=== PATIENT | female | born 1975 | race Caucasian/White ===

== ENCOUNTER 2017-05-25 08:17 | Emergency (ER) | payer MEDICAID ==
--- NOTE | 2017-05-25 09:01 | ED Physician Documentation ---
PD HPI URI - Stated complaint Stated Complaint: CHEST TIGHTNESS/SIDE PX - Chief complaint Chief Complaint: Cardiac - History obtained from History obtained from: Patient - History of Present Illness Timing - onset: How many days ago (4) Timing duration: Days Timing details: Gradual onset, Still present, Waxing and waning Associated symptoms: Ear pain, Nasal congestion, Dry cough, Chest pain, Dyspnea. No: Fever, Chills, Sweats Contributing factors: COPD / asthma Improves by: Rest Worsened by: Activity Similar symptoms before: Diagnosis (COPD) Recently seen: Not recently seen - Additional information Additional information: 41-year-old female with a history of COPD has developed increased respiratory difficulty she does not have any bronchodilator or any medications of any kind for her COPD. She is recently moved to the area and was last treated in January with a course of prednisone and antibiotic and inhaler with good result. She states she was well until several days ago when she began to have cough and increased shortness of breath. Review of Systems Constitutional: denies: Fever Eyes: denies: Decreased vision Ears: reports: Ear pain Nose: reports: Congestion Throat: denies: Sore throat Cardiac: reports: Chest pain / pressure. 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 - Present Medications Home Medications: Ambulatory Orders Medication Instructions Recorded Confirmed Albuterol Sulf [Ventolin Hfa 1 - 2 puffs INH Q4HR PRN #1 inhaler 05/25/17 Inhaler] Azithromycin [Zithromax] 250 mg PO DAILY #6 tablet 05/25/17 predniSONE [Deltasone] 10 mg PO DAILY #26 tablet 05/25/17 - Allergies Allergies/Adverse Reactions: Allergies Allergy/AdvReac Type Severity Reaction Status Date / Time Penicillins Allergy Unknown Verified 05/25/17 08:31 - Social History Does the pt smoke?: No Smoking Status: Former smoker Does the pt drink ETOH?: Yes Does the pt have substance abuse?: No PD ED PE NORMAL - Vitals Vital signs reviewed: Yes (Hypertensive) - General General: Alert and oriented X 3, No acute distress, Well developed/nourished - HEENT HEENT: Atraumatic, PERRL, EOMI, Other (Mild erythema along the right umbo the left is clear. mucous membranes are dry. ) - Neck Neck: Supple, no meningeal sign, No bony TTP - Cardiac Cardiac: RRR, No murmur - Respiratory Respiratory: No respiratory distress, Other (markedly diminished breath sounds bilaterally) - Abdomen Abdomen: Soft, Non tender - Back Back: No CVA TTP, No spinal TTP - Derm Derm: Normal color, Warm and dry, No rash - Extremities Extremities: No deformity, No edema - Neuro Neuro: No motor deficit, No sensory deficit Eye Opening: Spontaneous Motor: Obeys Commands Verbal: Oriented GCS Score: 15 - Psych Psych: Normal mood, Normal affect Results - Vitals Vitals: Vital Signs - 24 hr 05/25/17 05/25/17 05/25/17 08:23 09:46 09:56 Temperature 36.1 C L Heart Rate 77 81 76 Respiratory 18 21 18 Rate Blood Pressure 134/93 H 132/86 H O2 Saturation 98 97 Oxygen O2 Source Room air - EKG (time done) 0825 Rate: Rate (enter#) (76) Rhythm: NSR Compare to prior EKG: Old EKG unavailable Computer interpretation: Agree with computer - Rads (name of study) 2 veiw chest Radiology: Prelim report reviewed (Impression: Minimal bibasilar opacity, atelectasis/scar versus infiltrate.), EMP read indepedently, See rad report PD MEDICAL DECISION MAKING - ED course Complexity details: reviewed results, re-evaluated patient, considered differential, d/w patient ED course: 41-year-old female with history of COPD has had developed cough and congestion she has an increased shortness of breath and she does have otitis on exam she has diminished breath sounds and a question of infiltrate in the bases on chest x-ray. She is administered dexamethasone here in the emergency department as well as a DuoNeb treatment and 1 g of Rocephin IM. Departure - Departure Disposition: 01 Home, Self Care Clinical Impression: COPD exacerbation Condition: Stable Instructions: ED COPD Flare Follow-Up: [facility] [Provider Group] Prescriptions: Albuterol Sulf [Ventolin Hfa Inhaler] 1 - 2 puffs INH Q4HR PRN #1 inhaler PRN Reason: Shortness Of Air/Wheezing Azithromycin [Zithromax] 250 mg PO DAILY #6 tablet predniSONE [Deltasone] 10 mg PO DAILY #26 tablet
[2017-05-25] MEDS ORDERED: IPRATROPIUM/ALBUTEROL 3 ML NEB INH STA (09:23)
[2017-05-25] MEDS ORDERED: DEXAMETHASONE 10 MG/ML VIAL PO STA (09:23)
[2017-05-25] MEDS ORDERED: CHERRY SYRUP 10 ML UDC PO ONE (09:41)
[2017-05-25 09:58] VITALS: BP 132/86
--- NOTE | 2017-05-25 09:58 | XRAY Preliminary Report ---
Exam: XR CHEST 2 VIEW X-RAY IMPRESSION: Minimal bibasal opacity, atelectasis/scar versus infiltrate. [facility] SITE ID: [id number]
--- NOTE | 2017-05-25 09:58 | XRAY Report ---
EXAM: CHEST RADIOGRAPHY EXAM DATE: 05/25/2017 09:48 AM. CLINICAL HISTORY: Diminished breath sounds chest pain. COMPARISON: None. TECHNIQUE: 2 views. FINDINGS: Lungs/Pleura: Minimal bibasal opacity, atelectasis/scar versus infiltrate. No significant pleural eff usion or evidence of pneumothorax. Mediastinum: Heart and mediastinal contours are unremarkable. Other: None. IMPRESSION: Minimal bibasal opacity, atelectasis/scar versus infiltrate. [facility] Referring Provider Line: [phone] SITE ID: [id number]
[2017-05-25] MEDS ORDERED: LIDOCAINE 1% 2 ML VIAL SUBQ ONE (10:06)
[2017-05-25] MEDS ORDERED: cefTRIAXone 1 GM VIAL IM STA (10:06)
== END 2017-05-25 10:53 | disposition home or self-care (01) ==
LOC: ED 08:17
DX: J44.1 Chronic obstructive pulmonary disease with (acute) exacerbation (principal); Z87.891 Personal history of nicotine dependence
CPT/HCPCS: 71046; 93005; 94640; 96372; 99283; 99284; A9270

== ENCOUNTER 2017-10-08 08:11 | Emergency (ER) | payer OTHER ==
[2017-10-08 08:18] VITALS: BP 148/98
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
== END 2017-10-08 10:00 | disposition home or self-care (01) ==
LOC: ED 08:11
DX: J44.1 Chronic obstructive pulmonary disease with (acute) exacerbation (principal); H66.001 Acute suppurative otitis media without spontaneous rupture of ear drum, right ear; X01.1XXA Exposure to smoke in uncontrolled fire, not in building or structure, initial encounter
CPT/HCPCS: 99283

== ENCOUNTER 2018-09-01 13:00 | Outpatient (CLI) | payer MEDICAID ==
[~2018-09-01 13:00] MED LIST: ALBUTEROL NEB 2.5 MG/3 ML INH SCH
== END 2018-09-01 13:01 | disposition home or self-care (01) ==
LOC: RT 13:00
PROVIDERS: ATTEND Registered Nurse
DX: J44.0 Chronic obstructive pulmonary disease with (acute) lower respiratory infection (principal); J20.9 Acute bronchitis, unspecified; F17.200 Nicotine dependence, unspecified, uncomplicated
CPT/HCPCS: 94060; 94729

== ENCOUNTER 2018-09-13 08:00 | Outpatient (CLI) | payer MEDICAID ==
[2018-09-13 12:13] LABS: HGB - HEMOGLOBIN 14.9 g/dL (12.0-16.0); MEAN CORPUSCULAR HEMOGLOBIN 31.7 pg (27.0-31.0); MEAN CORPUSCULAR HGB CONC 33.8 g/dL (32.0-36.0); MEAN CORPUSCULAR VOLUME 93.8 fL (81.0-99.0); RED BLOOD COUNT 4.7 10^6/uL (4.20-5.40); RED CELL DISTRIBUTION WIDTH 12.6 % (12.0-15.0); WHITE BLOOD COUNT 9.3 x10^3/uL (4.8-10.8)
[2018-09-13 12:21] LABS: ALBUMIN 3.9 g/dL (3.2-5.5); ALBUMIN/GLOBULIN RATIO 1.3 (1.0-2.2); ALKALINE PHOSPHATASE 52 IU/L (42-121); ALT ALANINE AMINOTRANSFERASE 14 IU/L (10-60); AST ASPARTATE AMINOTRANSFERASE 16 IU/L (10-42); BILIRUBIN,TOTAL 0.9 mg/dL (0.2-1.0); BUN - BLOOD UREA NITROGEN 11 mg/dL (6-20); CALCIUM 8.9 mg/dL (8.5-10.3); CARBON DIOXIDE - CO2 26 mmol/L (21-32); CHLORIDE 103 mmol/L (101-111); CHOL/HDL RATIO 5.6 (<4.4); CHOLESTEROL 213 mg/dL; CREATININE 0.6 mg/dL (0.4-1.0); GFR - MDRD 109 (>89); GLUCOSE 99 mg/dL (70-100); HDL CHOLESTEROL 38 mg/dL; LDL CHOLESTEROL,CALCULATED 158 mg/dL; LDL/HDL RATIO 4.2 (<4.4); SODIUM 143 mmol/L (135-145); VLDL CHOLESTEROL 17 mg/dL
== END 2018-09-13 08:01 | disposition home or self-care (01) ==
LOC: LAB.N 08:00
PROVIDERS: ATTEND Internal Medicine
DX: Z00.00 Encounter for general adult medical examination without abnormal findings (principal); Z90.89 Acquired absence of other organs; J44.9 Chronic obstructive pulmonary disease, unspecified
CPT/HCPCS: 36415; 80053; 80061; 83721; 84443; 85027

== ENCOUNTER 2018-11-08 11:10 | Outpatient (CLI) | payer MEDICAID ==
[2018-11-08 13:01] VITALS: BP 120/80
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
== END 2018-11-08 11:11 | disposition home or self-care (01) ==
LOC: SC 11:10
PROVIDERS: ATTEND Internal Medicine Pulmonary Disease
DX: G47.33 Obstructive sleep apnea (adult) (pediatric) (principal); G47.00 Insomnia, unspecified
CPT/HCPCS: 99203; 99212

== ENCOUNTER 2018-11-22 19:30 | Outpatient (CLI) | payer MEDICAID | END 2018-11-22 23:59 | LOC: SC 19:30 | PROVIDERS: ATTEND Internal Medicine Pulmonary Disease | DX: G47.33 Obstructive sleep apnea (adult) (pediatric) (principal) | CPT/HCPCS: 95806 ==

== ENCOUNTER 2019-01-04 10:22 | Outpatient (CLI) | payer MEDICAID ==
--- NOTE | 2019-01-04 12:52 | SLEEP CARE CONSULTATION ---
Information from patient questionnaire entered by Vy Berman. I have reviewed and concur with the information entered by Vy Berman. This document represents the service I personally performed and the decisions made by me, Sav Kim MD, [facility]. History of Present Illness Initial [place] Sleepiness Scale score: 14 Current [place] Sleepiness Scale score: 15 Additional HPI information: HPI: returned for follow up of the sleep study she had on 11/22/2018. The test shows the following: SLEEP TIME AND EFFICIENCY: The sleep study recording began at 09:16:03 PM and ended at 03:32:48 AM. Total recording time was 376.7 minutes. The total sleep time was 331.0 minutes. The sleep efficiency was 87.9 percent. The patient spent 232.0 minutes supine, and spent 99.0 minutes non-supine. The patients own estimate of sleep time was 7.00 hours. RESPIRATORY DATA: The AHI in this report is indexed to sleep time based on actigraphy. The AASM defines this as MILAN. The AHI on this type 3 Home Sleep Study may understate the AHI determined on a type 1 or 2 study, since EEG is not monitored resulting in the inability to score non-desaturating hypopneas. Based on 4% Calculation: The AHI4% calculation of 0.4 per hour of recording time was based on a total of 1 scored apneas and 1 scored hypopneas with 4% desaturations. Supine AHI4%: 0.5 per hour. Non-supine AHI4%: 0.0 per hour. Oxygen Summary: Patient's baseline O2 saturation was 96.4 %. The patient spent 15.1 minutes at an oxygen saturation less than 90%, and 0.0 minutes less than 85%. The desaturation index was 0.4 events per hour sleep time. The lowest saturation was 88.1%. The patient was informed of these findings. I explained to her that she does not have significant sleep disordered breathing as previously diagnosed. Allergies and Home Medications Drug allergies reviewed: Yes Home medication list reviewed: Yes Review of Systems Review of systems same as previous: Yes Physical Exam Weight: 213 lb Impression and Plan IMPRESSION: 1. Obstructive Sleep Apnea-Hypopnea Syndrome, very mild as diagnosed in [place] many years ago but not seen here. The patient never used CPAP at home and does not wish to use one. Therefore, further evaluation is not needed. I did advise her stop smoking cigarettes because her oxygen saturation was already slightly low for 15 minutes during the test. PLAN: 1. Quit smoking cigarettes 2. Avoid weight gain. 3. Return for follow up on as needed basis. I spent 100% of this 20 minute visit face to face with the patient with greater than 50% of this was spent time counseling the patient and coordination of care.
== END 2019-01-04 10:23 | disposition home or self-care (01) ==
LOC: SC 10:22
PROVIDERS: ATTEND Internal Medicine Pulmonary Disease
DX: G47.33 Obstructive sleep apnea (adult) (pediatric) (principal); F17.210 Nicotine dependence, cigarettes, uncomplicated
CPT/HCPCS: 99212; 99213

== ENCOUNTER 2019-03-22 19:07 | Outpatient (CLI) | payer MEDICAID ==
--- NOTE | 2019-03-23 06:55 | Ultrasound Report ---
Reason: MENORRHAGIA Procedure Date: 03/22/2019 Accession Number: [id number] / [id number] Procedure: US - Pelvic w/Transvaginal CPT Code: Final Report FULL RESULT: EXAM: PELVIC ULTRASOUND EXAM DATE: 03/22/2019 07:57 PM. CLINICAL HISTORY: Menorrhagia. COMPARISON: None. TECHNIQUE: Realtime transabdominal pelvic scan performed to identify the uterus and adnexa and as an overview of other pelvic structures, followed by transvaginal scan to provide greater detail of the uterus and adnexa, with static image documentation. FINDINGS: Uterus: 6.9 x 4.5 x 5.4 cm, volume 87 cc. Retroverted position. Normal overall size and echotexture. Masses: None. Endometrium: 6 mm. An echogenic non-hypervascular focus in the endometrial canal may represent a polyp and measures approximately 2 x 8 mm as seen on image 45. It is surrounded by a small amount of fluid. Cervix: Unremarkable. Right Ovary: 2.1 x 1.8 x 2.9 cm, volume 5.5 cc. Normal echotexture and blood flow. Left Ovary: 5.4 x 3.3 x 4.4 cm, volume 41 cc. A large simple cyst measures 3.1 x 3.6 x 4.3 cm. Additionally, there is a small complex cyst containing echogenic nonvascular components measuring 1.3 x 1.1 x 0.9 cm. No evidence for torsion. Free Fluid: Small physiologic amount. Other: None. IMPRESSION: 1. 4.3 cm simple left ovarian cyst. 2. 1.3 cm small left ovarian hemorrhagic cyst. 3. 8 mm probable endometrial polyp. [facility]
== END 2019-03-22 19:08 | disposition home or self-care (01) ==
LOC: DI 19:07
PROVIDERS: ATTEND Obstetrics & Gynecology
DX: N83.292 Other ovarian cyst, left side (principal)
CPT/HCPCS: 76830; 76856

== ENCOUNTER 2019-04-06 15:55 | Outpatient (CLI) | payer MEDICAID ==
--- NOTE | 2019-04-06 16:38 | CT Report ---
Reason: CHRONIC SINUSITIS Procedure Date: 04/06/2019 Accession Number: [id number] / [id number] Procedure: CT - Sinuses CPT Code: Final Report FULL RESULT: EXAM: CT SINUS EXAM DATE: 04/06/2019 04:19 PM. HISTORY: 43-year-old female. CHRONIC SINUSITIS. COMPARISONS: None. TECHNIQUE: Routine multi-axial CT imaging performed through the sinuses. Iodinated IV contrast: None. Reconstructions: Multiplanar reformats. In accordance with CT protocol optimization, one or more of the following dose reduction techniques were utilized for this exam: automated exposure control, adjustment of mA and/or KV based on patient size, or use of iterative reconstructive technique. FINDINGS: RIGHT Frontal: Normal. Ethmoid: Normal. Maxillary: Normal. Sphenoid: Normal. Drainage Pathways: The frontal recess, ostiomeatal complex and sphenoethmoidal recess are patent and normal. LEFT Frontal: Normal. Ethmoid: Normal. Maxillary: Minimal mucosal thickening inferior left maxillary antrum. Sphenoid: Normal. Drainage Pathways: The frontal recess, ostiomeatal complex and sphenoethmoidal recess are patent and normal. Nasal Cavity: Rightward deviation of the nasal septum. Alley bullosa of the left middle turbinate. No mass or significant anatomic abnormality evident. Osseous Structures: Unremarkable. Orbits: Unremarkable. Other: None. IMPRESSION: 1. Minimal mucosal thickening inferior left maxillary antrum. The remaining paranasal sinuses are clear. No evidence of sinusitis. The drainage pathways bilaterally are patent. 2. Rightward deviation of the nasal septum. Alley bullosa of the left middle turbinate. [facility]
== END 2019-04-06 15:56 | disposition home or self-care (01) ==
LOC: DI 15:55
PROVIDERS: ATTEND Otolaryngology
DX: J32.9 Chronic sinusitis, unspecified (principal); J34.2 Deviated nasal septum
CPT/HCPCS: 70486

== ENCOUNTER 2019-04-17 10:10 | Outpatient (CLI) | payer MEDICAID | END 2019-04-17 10:11 | disposition home or self-care (01) | LOC: LAB 10:10 | PROVIDERS: ATTEND Obstetrics & Gynecology | DX: Z01.812 Encounter for preprocedural laboratory examination (principal); N84.0 Polyp of corpus uteri ==

== ENCOUNTER 2019-04-18 07:36 | Outpatient (CLI) | payer MEDICAID | END 2019-04-18 07:37 | disposition critical access hospital (66) | LOC: EMS 07:36 | PROVIDERS: ATTEND Surgery | DX: R06.02 Shortness of breath (principal); R05 Cough | CPT/HCPCS: A0425; A0427; A0999 ==

== ENCOUNTER 2019-04-18 07:55 | Inpatient (IN) | payer MEDICAID ==
[2019-04-18] MEDS ORDERED: SODIUM CHLORIDE 0.9% 1,000 ML IV ONE ×2 (08:00→10:28)
[2019-04-18] MEDS ORDERED: IPRATROPIUM/ALBUTEROL 3 ML NEB INH STA ×3 (08:00→10:28)
--- NOTE | 2019-04-18 08:03 | ED Physician Documentation ---
PD HPI DYSPNEA - Stated complaint Stated Complaint: SOA - History obtained from History obtained from: Patient, Family - History of Present Illness Timing - onset: How many days ago (3) Timing - onset during: Rest Timing - duration: Days (3) Timing - details: Gradual onset, Still present Inciting event(s): URI Improved by: Inhaler/neb, Steroids Worsened by: Exertion, Laying flat, Coughing Associated symptoms: Fever, Cough, Wheezing Similar symptoms before: Diagnosis (COPD) Recently seen: Not recently seen - Additional information Additional information: 43-year-old female with a history of COPD has developed cough congestion low- grade fever and shortness of breath. She has not been able to get her nebulizer machine to help her with her shortness of breath and she eventually called the ambulance. She has received an albuterol and a DuoNeb in route to the hospital. She has some some improvement in her breathing. She continues to have tight wheezes. She was given 125 mg of Solu-Medrol and route. She indicates last time she had to take prednisone was about 1 month ago. Review of Systems Constitutional: reports: Fever, Fatigue Eyes: denies: Decreased vision Ears: denies: Ear pain Nose: reports: Rhinorrhea / runny nose, Congestion Throat: reports: Sore throat Cardiac: reports: Chest pain / pressure. denies: Palpitations, Pedal edema, Calf pain Respiratory: reports: Dyspnea, Cough, Wheezing GI: reports: Abdominal Pain. 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 - Present Medications Home Medications: Ambulatory Orders Medication Instructions Recorded Confirmed Albuterol Sulf [Ventolin Hfa 1 - 2 puffs INH Q4HR PRN #1 inhaler 05/25/17 Inhaler] Azithromycin [Zithromax] 250 mg PO DAILY #6 tablet 10/08/17 buPROPion [Wellbutrin Xl] 150 mg PO DAILY 10/08/17 10/08/17 predniSONE [Deltasone] 10 mg PO DAILY #26 tablet 10/08/17 - Allergies Allergies/Adverse Reactions: Allergies Allergy/AdvReac Type Severity Reaction Status Date / Time Penicillins Allergy Unknown Verified 04/18/19 08:08 - Social History Does the pt smoke?: No Smoking Status: Never smoker Does the pt drink ETOH?: Yes Does the pt have substance abuse?: No - Immunizations Immunizations are current?: Yes - POLST Patient has POLST: No PD ED PE NORMAL - Vitals Vital signs reviewed: Yes (tachy, tachypneic and hypertensive ) - General General: Alert and oriented X 3, Well developed/nourished, Other (arrives with albuterol neb running and acute dyspnea with audible wheeze) - HEENT HEENT: Atraumatic, PERRL, EOMI, Ears normal, Other (dry mucous membranes ) - Neck Neck: Supple, no meningeal sign, No bony TTP - Cardiac Cardiac: No murmur, Other (tachy to 120) - Respiratory Respiratory: Other (tachypneic at rest with tight wheezes bilat) - Abdomen Abdomen: Soft, Other (mild tenderness without guarding ) - Back Back: No CVA TTP, No spinal TTP - Derm Derm: Normal color, Warm and dry, No rash - Extremities Extremities: No deformity, No edema, No calf tenderness / cord - Neuro Neuro: Alert and oriented X 3, 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, No motor deficit, No sensory deficit, Normal speech Eye Opening: Spontaneous Motor: Obeys Commands Verbal: Oriented GCS Score: 15 - Psych Psych: Other (mood is anxious and the affect is cautious) Results - Vitals Vitals: Vital Signs - 24 hr 04/18/19 04/18/19 04/18/19 08:02 08:18 08:30 Temperature 37.5 C Heart Rate 123 H 110 H 113 H Respiratory 29 H 28 H 35 H Rate Blood Pressure 158/107 H 158/94 H O2 Saturation 95 93 04/18/19 04/18/19 08:48 09:30 Temperature Heart Rate 114 H 118 H Respiratory 34 H 30 H Rate Blood Pressure 177/94 H O2 Saturation 92 Oxygen O2 Source Room air - Labs Labs: Laboratory Tests 04/18/19 04/18/19 04/18/19 08:12 08:12 08:12 WBC 9.8 RBC 4.07 L Hgb 13.1 Hct 39.8 MCV 97.8 MCH 32.2 H MCHC 32.9 RDW 13.6 Plt Count 168 MPV 9.8 Neut # (Auto) 8.0 H Lymph # (Auto) 0.8 L [place] # (Auto) 0.8 Eos # (Auto) 0.3 Baso # (Auto) 0.0 Absolute Nucleated RBC 0.00 Nucleated RBC % 0.0 Sodium 139 Potassium 3.3 L Chloride 103 Carbon Dioxide 25 Anion Gap 11.0 BUN 10 Creatinine 0.6 Estimated GFR (MDRD) 108 Glucose 135 H Lactic Acid 2.3 H Calcium 8.1 L Total Bilirubin 0.7 AST 28 ALT 50 Alkaline Phosphatase 52 Total Protein 7.1 Albumin 4.1 Globulin 3.0 Albumin/Globulin Ratio 1.4 Lipase 22 Urine Color Urine Clarity Urine pH Ur Specific Bledsoe Urine Protein Urine Glucose (UA) Urine Ketones Urine Occult Blood Urine Nitrite Urine Bilirubin Urine Urobilinogen Ur Leukocyte Esterase Ur Microscopic Review Urine Culture Comments Urine HCG, Qual 04/18/19 04/18/19 08:39 08:39 WBC RBC Hgb Hct MCV MCH MCHC RDW Plt Count MPV Neut # (Auto) Lymph # (Auto) [place] # (Auto) Eos # (Auto) Baso # (Auto) Absolute Nucleated RBC Nucleated RBC % Sodium Potassium Chloride Carbon Dioxide Anion Gap BUN Creatinine Estimated GFR (MDRD) Glucose Lactic Acid Calcium Total Bilirubin AST ALT Alkaline Phosphatase Total Protein Albumin Globulin Albumin/Globulin Ratio Lipase Urine Color YELLOW Urine Clarity CLEAR Urine pH 6.0 Ur Specific [place] 1.025 1.025 Urine Protein NEGATIVE Urine Glucose (UA) NEGATIVE Urine Ketones NEGATIVE Urine Occult Blood TRACE-INTA Urine Nitrite NEGATIVE Urine Bilirubin NEGATIVE Urine Urobilinogen 0.2 (NORMAL) Ur Leukocyte Esterase NEGATIVE Ur Microscopic Review NOT INDICATED Urine Culture Comments NOT INDICATED Urine HCG, Qual NEGATIVE - Rads (name of study) cxr Radiology: Prelim report reviewed (Impression: Patchy bibasilar opacities, greater on the left. Could reflect atelectasis, infiltrate, or scarring in the correct clinical setting.), EMP read indepedently, See rad report PD MEDICAL DECISION MAKING - ED course Complexity details: reviewed old records, reviewed results, re-evaluated patient, considered differential, d/w patient, d/w family ED course: 43-year-old female with a history of COPD has an exacerbation of her COPD and she is not able to get relief with multiple nebulized treatments. She is administered Solu-Medrol 125 mg in route to the hospital here this morning she is received a DuoNeb and albuterol and the barney a second DuoNeb here 10 mg of albuterol and a third DuoNeb. She continues to have tachycardia, tachypnea and wheezing as well as anxiety. She was afebrile today white count is normal chest x-ray is concerning for the possibility of pneumonia. She is administered Rocephin intravenously as well.She has not cleared here in the emergency department and admission to the hospital for exacerbation of COPD and pneumonia is sought. Departure - Departure Disposition: [facility] DC/Xfer Clinical Impression: COPD exacerbation Pneumonia Qualifiers: Pneumonia type: due to unspecified organism Laterality: left Lung location: lower lobe of lung Qualified Code(s): J18.9 - Pneumonia, unspecified organism Condition: Fair
--- NOTE | 2019-04-18 08:31 | XRAY Report ---
Reason: chest pain Procedure Date: 04/18/2019 Accession Number: [id number] / [id number] Procedure: XR - Chest 1 View X-Ray CPT Code: 73071 Final Report FULL RESULT: EXAM: CHEST RADIOGRAPHY EXAM DATE: 04/18/2019 08:17 AM. CLINICAL HISTORY: Chest pain. COMPARISON: CHEST 2 VIEW 05/25/2017 9:31 AM. TECHNIQUE: 1 view. FINDINGS: Lungs/Pleura: Prominent interstitial markings. Patchy bibasilar opacities, greater on the left, could reflect atelectasis, infiltrate, or scarring in the correct clinical setting. Only minimally present on the right. No pleural effusion. No visible pneumothorax. Mediastinum: Within exam limitations, the cardiomediastinal contour is normal. Other: None. IMPRESSION: Patchy bibasilar opacities, greater on the left. Could reflect atelectasis, infiltrate, or scarring in the correct clinical setting. RADIA
[2019-04-18 08:35] LABS: ALBUMIN 4.1 g/dL (3.2-5.5); ALBUMIN/GLOBULIN RATIO 1.4 (1.0-2.2); BILIRUBIN,TOTAL 0.7 mg/dL (0.2-1.0); CALCIUM 8.1 mg/dL (8.5-10.3); CREATININE 0.6 mg/dL (0.4-1.0); TOTAL PROTEIN 7.1 g/dL (6.7-8.2)
[2019-04-18] MEDS ORDERED: cefTRIAXone 1 GM in SODIUM CHLORIDE 0.9% MINIBAG 100 ML IV STA (08:37)
[2019-04-18] MEDS ORDERED: LORazepam 2 MG/ML VIAL IVP STA ×2 (08:37→10:44)
[2019-04-18] MEDS ORDERED: ALBUTEROL NEB 2.5 MG/3 ML INH STA (08:39)
[2019-04-18 08:41] LABS: BASOPHILS % (AUTO) 0.4 %; EOSINOPHILS # (AUTO) 0.3 10^3/uL (0.0-0.7); EOSINOPHILS % (AUTO) 2.7 %; HGB - HEMOGLOBIN 13.1 g/dL (12.0-16.0); LYMPHOCYTES # (AUTO) 0.8 10^3/uL (1.5-3.5); LYMPHOCYTES % (AUTO) 7.9 %; MEAN CORPUSCULAR HEMOGLOBIN 32.2 pg (27.0-31.0); MEAN CORPUSCULAR HGB CONC 32.9 g/dL (32.0-36.0); MEAN CORPUSCULAR VOLUME 97.8 fL (81.0-99.0); MEAN PLATELET VOLUME 9.8 fL (7.9-10.8); MONOCYTES # (AUTO) 0.8 10^3/uL (0.0-1.0); MONOCYTES % (AUTO) 7.6 %; PLT - PLATELET COUNT 168 10^3/uL (130-450); RED BLOOD COUNT 4.07 10^6/uL (4.20-5.40); RED CELL DISTRIBUTION WIDTH 13.6 % (12.0-15.0); WHITE BLOOD COUNT 9.8 x10^3/uL (4.8-10.8)
[2019-04-18] MEDS ORDERED: POTASSIUM CHLORIDE 20 MEQ TABLET PO STA (08:52)
[2019-04-18 09:08] LABS: BILIRUBIN,URINE NEGATIVE (NEGATIVE); GLUCOSE, URINE (UA) NEGATIVE (NEGATIVE); KETONES,URINE (UA) NEGATIVE (NEGATIVE); LEUKOCYTE ESTERASE, URINE NEGATIVE (NEGATIVE); NITRITE,URINE NEGATIVE (NEGATIVE); OCCULT BLOOD,URINE TRACE-INTA (NEGATIVE); PROTEIN,URINE NEGATIVE (NEGATIVE); UROBILINOGEN,URINE 0.2 (NORMAL) E.U./dL (NORMAL)
[2019-04-18 09:12] LABS: CLARITY,URINE CLEAR (CLEAR); HCG UR QUAL NEGATIVE
[2019-04-18] MEDS ORDERED: AZITHROMYCIN INJ 500 MG in SODIUM CHLORIDE 0.9% 250 ML IV STA (10:33)
[2019-04-18 10:48] LABS: MUDS CUTOFF CONCENTRATIONS CUTOFF CONC BELOW:
[2019-04-18 11:06] LABS: AMPHETAMINE SCREEN,URINE NEGATIVE (NEGATIVE); BENZODIAZEPINES SCREEN, URINE NEGATIVE (NEGATIVE); COCAINE SCREEN URINE NEGATIVE (NEGATIVE); METHADONE SCREEN, URINE NEGATIVE (NEGATIVE); METHAMPHETAMINES SCREEN, URINE NEGATIVE (NEGATIVE); OPIATE SCREEN, URINE POSITIVE (NEGATIVE); OXYCODONE SCREEN, URINE NEGATIVE (NEGATIVE); PROPOXYPHENE SCREEN, URINE NEGATIVE (NEGATIVE); TRICYCLIC ANTIDEPRESSANT,URINE POSITIVE (NEGATIVE)
[2019-04-18] MEDS ORDERED: LEVALBUTEROL 1.25 MG/3 ML NEB INH STA (11:42)
[2019-04-18] MEDS: LEVALBUTEROL 1.25 MG/3 ML NEB INH PRN ×2 (12:03→16:32)
[2019-04-18] MEDS: methylPREDNISolone SUCCINATE 125 MG/2 ML VIAL IVP SCH ×3 (12:30→21:40)
[2019-04-18] MEDS: MORPHINE 2 MG/ML CARPUJECT IVP PRN ×4 (12:30→21:10)
[2019-04-18] MEDS: guaiFENesin 600 MG TABLET PO SCH ×2 (12:30→21:38)
--- NOTE | 2019-04-18 13:02 | HISTORY & PHYSICAL EXAMINATION ---
Chief Complaint - Chief Complaint Chief Complaint: fever, cough, SOB History of Present Illness - Admitted From Admitted From:: ED - History Obtained From Records Reviewed: yes History obtained from: chart review, patient, patient's sister Exam Limitations: none - History of Present Illness HPI Comment/Other: Carmel Schwarz is a 43-year old white female with a past medical history of COPD, pneumonia, tobacco dependence, narcotic dependence, chronic pain, spinal stenosis, osteoarthritis, chronic insomnia, obesity, bladder prolapse, kidney stones, ovarian cyst, PTSD, Bipolar affective disorder, Borderline personality disorder, suicide attempts, self-harm by cutting arms, GERD, status post thyroidectomy, hiatal hernia, and caffeine dependence. The patient was brought in by EMS with a 3-day history of progressive shortness of breath, cough, sore throat, runny nose and orthopnea, which started as an upper respiratory infection. She states that last night she had nausea, vomiting, and a low grade fever with chills. For her shortness of breath, she tried her albuterol nebulizer with no relief, and admits to smoking 10-12 cigarettes daily despite her COPD. EMS reports they administered 125 mg IV solu-medrol, and continuous due-neb en route with some relief. Labs showed potassium 3.3, glucose 135, lactic acid 2.3 and calcium 8.1, without any other abnormalities. A urine was negative for infection, MUDDs screen normal for what she takes at home, influenza A&B negative, and HCg negative. Imaging shows left greater than right patchy opacities. Vital signs upon arrival were: temp 37.5 C, HR 123, B/P 158/107, RR 29, and the patient was 95% on room air. Upon my exam, the patient had doorway wheezing, no strider, and could only speak in 2-3 word sentences. She complained of abdominal pain from her vigorous coughing, increased flank pain, headaches, chest tightness, and was very worried about messing up her pain clinic agreement regarding her narcotics. Given her pneumonia, with COPD exacerbation, she has been admitted to inpatient. 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: Ovarian cysts : reports: Incontinence, Nocturia, Frequency, Kidney stones HEENT: reports: Chronic vision loss, Chronic sinusitis, Chronic hearing loss Psych: reports: Depression, Anxiety, Bipolar disorder, Schizophrenia, Panic emery cks, Post traumatic stress disorder, Other (suicidal in the past, cutting on arms) Musculoskeletal: reports: Osteoarthritis, Fatigue, Chronic back pain Derm: reports: None MRSA Hx?: No - Past Surgical History General: reports: 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 She is not employed, lives a sedentary lifestyle. She has chronic pain which limits her abilities, but still drives. She denies alcohol or illicit drug use. She admits to smoking from age 12-currently (10-12 cigarettes daily). She wishes to be a DNR. - Substance History Use: Uses substance without health or social issues: Tobacco, Opioid Use Issues: Anxiety Disorder, Mood Disorder, Sleep Disorder Abuse: Recurrent use of substance despite neg consequences: Opioid Abuse Issues: Anxiety Disorder, Mood Disorder, Sleep Disorder Dependence: Experiences withdrawal or developed tolerances: Tobacco, Opioid Dependence Issues: Anxiety Disorder, Mood Disorder Tobacco Details: Cigarettes - POLST Patient has POLST: No POLST Status: DNR Meds/Allgy - Home Medications Home Medications: Ambulatory Orders Medication Instructions Recorded Confirmed Albuterol Sulf [Ventolin Hfa 1 - 2 puffs INH Q4HR PRN #1 inhaler 05/25/17 Inhaler] Azithromycin [Zithromax] 250 mg PO DAILY #6 tablet 10/08/17 buPROPion [Wellbutrin Xl] 150 mg PO DAILY 10/08/17 10/08/17 predniSONE [Deltasone] 10 mg PO DAILY #26 tablet 10/08/17 - Allergies Allergies/Adverse Reactions: Allergies Allergy/AdvReac Type Severity Reaction Status Date / Time Penicillins Allergy Unknown Verified 04/18/19 08:08 Review of Systems - Constitutional Constitutional: reports: Fatigue, Fever, Chills, Malaise, Weakness, Poor appetite, Diaphoresis, Weight loss - Eyes Eyes: reports: Vision loss, Corrective lenses - Ears, Nose & Throat Ears, Nose & Throat: reports: Hearing loss, Tinnitus, Nasal congestion, Postnasal drainage, Sore throat, Hoarseness, Dental decay - Cardiovascular Cariovascular: reports: Edema, Decr. exercise tolerance, Orthopnea - Respiratory Respiratory: reports: Cough, Sputum production, Wheezing, Orthopnea, SOB with exertion - Gastrointestinal Gastrointestinal: reports: Abdominal distention, Nausea, Vomiting, Bile emesis, Reflux/heartburn, Bloating, Poor appetite - Genitourinary Genitourinary: reports: Dysuria, Frequency, Urgency, Incontinence, Nocturia - Musculoskeletal Musculoskeletal: reports: Back pain, Muscle aches, Stiffness, Limited range of motion - Integumentary Integumentary: reports: Dryness - Neurological Neurological: reports: General weakness, Focal weakness, Headache, Dizziness, Memory problems, Pre-existing deficit - Psychiatric Psychiatric: reports: Depression, Anxiety, Suicidal (history, not currently) - Endocrine Endocrine: reports: Intolerance to cold - Hematologic/Lymphatic Hematologic/Lymphatic: reports: Petechiae (on chest), Recurrent infections - All Other Systems All Other Systems: reports: Reviewed and negative Prior Level of Functionality: drives a car, no recent falls, lives independently with family. Exam - Vital Signs Reviewed Vital Signs: Yes Vital Signs: Vital Signs x48h Temp Pulse Resp BP Pulse Ox 04/18/19 12:12 100 30 H 04/18/19 11:00 122 H 29 H 181/106 H 91 L 04/18/19 10:39 114 H 31 H 04/18/19 09:30 118 H 30 H 177/94 H 92 04/18/19 08:48 114 H 34 H 04/18/19 08:30 113 H 35 H 158/94 H 93 04/18/19 08:18 110 H 28 H 04/18/19 08:02 37.5 C 123 H 29 H 158/107 H 95 - Physical Exam General Appearance: positive: Alert, Moderate distress Eyes Bilateral: positive: No lid inflammation ENT: positive: Pharyngeal erythema, Dry mucous membranes Neck: positive: No JVD, Trachea midline, Lymphadenopathy (R), Lymphadenopathy (L), Stiff neck Respiratory: positive: Chest non-tender, No respiratory distress, Wheezes, Rhonchi Cardiovascular: positive: Regular rate & rhythm, Tachycardia, Systolic murmur, Decreased pulse(s) Peripheral Pulses: positive: 1+ Abdomen: positive: Tenderness, Guarding, Hepatomegaly, Other (rounded, obese, soft) Back: positive: Nml inspection Skin: positive: Color nml, No rash, Warm, Dry Extremities: positive: Non-tender, Full ROM, Nml appearance, No pedal edema Neurologic/Psychiatric: positive: Oriented x3, CN's nml (2-12), Motor nml, Sensation nml, Depressed mood/affect (flat) Reflexes: Bicep (R): 3+, Bicep (L): 3+ Conclusion/Plan - Problem List (1) Acute respiratory failure with hypoxia Conclusion/Plan: -Patient uses chronic inhalers, but continues to smoke at home since age 12 -Recurrent pneumonia, last episode was 1 year ago while living in [place] -Now requiring scheduled Xopenex, with continued wheezing -Respiratory rate ~36 -COPD exacerbation, continued tobacco dependence, and pneumonia all contributing factors -Continue to provide supplemental oxygen, IV steroids, IV antibiotics, RT cares COPD exacerbation -Patient has underlying COPD, first diagnosed in ~ 2004 -No current fisher sponge hooking -Recommend establishing care with a fisher sponge hooking -[facility] order for Pulmonary rehab Pneumonia -Bilateral, left greater than right on imaging -Goes with history of fever, chills, N/V, and started as URI -Allergic to PCN, continue Rocephin, Azithromycin PO, RT cares Narcotic dependence -Patient sees the [facility] pain clinic -Longstanding narcotic use, patient states she takes oxycodone Chronic pain -Pain in back and joint -No MVA, prior surgeries, maybe genetic, and due to chronic obesity -Sees the [facility] pain clinic phone # [phone] -Appears that she is prescribed oxycodone, awaiting pharmacy review Osteoarthritis -Per patient history Spinal stenosis -Per patient history, mentioned cervical spine of which she gets injections from her pain clinic provider -Treat pain, resume chronic narcotics if respiratory status improves Tobacco dependence -Patient admits to lifelong smoking dependence, starting at age 12 -She has never been able to stop -Offer nicotine patch daily -Encourage cessation Caffeine dependence -Patient drinks Pepsi for much of the day, then caffeinated tea at night that she re-heats -Likely contributes to her obesity, insomina -Encourage patient to reduce these amounts Chronic insomnia -Patient takes several sleep aides, trazodone, prasazosin, and Seroquel, awaiting pharmacy review -Patient is noted to sleep in a chair, chronically Obesity (BMI 30.0-34.9) -Patient states she has had a 30 lb weight loss in the past few months, with no explanation as to why -Monitor daily weights Female bladder prolapse -Creates urinary incontinence -Offer pure-wick during patients acute respiratory distress Ovarian cyst -Per patient, Dr. Stringer is planning on removing soon PTSD (post-traumatic stress disorder) Bipolar affective disorder Borderline personality disorder -Per patient, also with a history of self-harm, cutting, suicide -Await pharmacy review, resume usual meds while in the hospital GERD (gastroesophageal reflux disease) -Patient takes a PPI at home, continued here -Monitor for symptoms History of thyroidectomy -Patient notes this was removed due to a thyroid nodule, partial only -No consequent hypothyroidism -Check TSH in the AM Hiatal hernia -Patient takes a PPI at home, continued here -Monitor for symptoms DNR (do not resuscitate) -When confirming code status, the patients sister (twin) became tearful -Patient very matter of fact when claiming her wishes -Ok if BiPAP, or CPAP is needed - Lab Results Lab results reviewed: Yes Abdifatah Bones: 04/18/19 08:12 04/18/19 08:12 Core Measures - Anticipated LOS I expect patient to be DC'd or transferred within 96 hours.: Yes - DVT/VTE - Prophylaxis VTE/DVT Device ordered at admit?: Yes VTE/DVT Prophylaxis med ordered at admit?: Yes - Stroke - Rehab Assessment Rehab services assessment to be ordered?: No Not Ordered - Medical Reason: Contraindicated - AMI - Statin at Admit Aspirin Prescribed on Admit: Yes
[2019-04-18] MEDS: SODIUM CHLORIDE FLUSH 0.9% 10 ML SYRINGE IVP SCH (16:35)
[2019-04-18] MEDS: LORazepam 2 MG/ML VIAL IVP PRN ×2 (18:01→20:12)
[2019-04-18] MEDS: SODIUM CHLORIDE FLUSH 0.9% 10 ML SYRINGE IVP PRN ×4 (18:01→21:10)
[2019-04-18] MEDS ORDERED: traZODone 50 MG TABLET PO SCH (21:00)
[2019-04-18] MEDS ORDERED: QUEtiapine 100 MG TABLET PO SCH (21:00)
[2019-04-18] MEDS: OXYMETAZOLINE HCL 100 SPRAYS BOTTLE NAS SCH ×2 (21:38→21:52)
[2019-04-18] MEDS: PRAZOSIN 1 MG CAPSULE PO SCH (21:39)
[2019-04-18] MEDS: polyethylene glycoL 3350 17 GM PACKET PO SCH (21:39)
[2019-04-19] MEDS: LORazepam 2 MG/ML VIAL IVP PRN ×6 (01:08→17:13)
[2019-04-19] MEDS: SODIUM CHLORIDE FLUSH 0.9% 10 ML SYRINGE IVP SCH ×3 (01:09→17:25)
[2019-04-19] MEDS: LEVALBUTEROL 1.25 MG/3 ML NEB INH PRN ×5 (01:09→23:53)
[2019-04-19] MEDS: SODIUM CHLORIDE FLUSH 0.9% 10 ML SYRINGE IVP PRN ×7 (02:11→20:30)
[2019-04-19] MEDS: MORPHINE 2 MG/ML CARPUJECT IVP PRN ×9 (02:11→22:37)
[2019-04-19 05:32] LABS: BASOPHILS % (AUTO) 0.2 %; EOSINOPHILS # (AUTO) 0.2 10^3/uL (0.0-0.7); HGB - HEMOGLOBIN 13.3 g/dL (12.0-16.0); LYMPHOCYTES # (AUTO) 0.9 10^3/uL (1.5-3.5); LYMPHOCYTES % (AUTO) 5.2 %; MEAN CORPUSCULAR HEMOGLOBIN 32.6 pg (27.0-31.0); MEAN CORPUSCULAR HGB CONC 33.3 g/dL (32.0-36.0); MEAN CORPUSCULAR VOLUME 97.8 fL (81.0-99.0); MEAN PLATELET VOLUME 9.7 fL (7.9-10.8); MONOCYTES # (AUTO) 0.6 10^3/uL (0.0-1.0); MONOCYTES % (AUTO) 3.5 %; NEUTROPHILS # (AUTO) 15.8 10^3/uL (1.5-6.6); NEUTROPHILS % (AUTO) 88.7 %; PLT - PLATELET COUNT 180 10^3/uL (130-450); RED BLOOD COUNT 4.08 10^6/uL (4.20-5.40); RED CELL DISTRIBUTION WIDTH 13.5 % (12.0-15.0); WHITE BLOOD COUNT 17.8 x10^3/uL (4.8-10.8)
[2019-04-19 05:40] LABS: ALBUMIN 3.8 g/dL (3.2-5.5); ALBUMIN/GLOBULIN RATIO 1.2 (1.0-2.2); BILIRUBIN,TOTAL 0.2 mg/dL (0.2-1.0); CALCIUM 8.8 mg/dL (8.5-10.3); CREATININE 0.7 mg/dL (0.4-1.0)
[2019-04-19 05:56] LABS: HB2 TOTAL 13.4 g/dL; HEMOGLOBIN A1C 0.52 g/dL; HEMOGLOBIN A1C % 5.7 % (4.6-6.2)
[2019-04-19] MEDS: methylPREDNISolone SUCCINATE 125 MG/2 ML VIAL IVP SCH ×4 (06:26→21:54)
[2019-04-19] MEDS: PANTOPRAZOLE 40 MG TABLET PO SCH (06:28)
[2019-04-19] MEDS ORDERED: hydrALAZINE INJ 20 MG/ML VIAL IVP PRN (09:10)
[2019-04-19] MEDS: AZITHROMYCIN 250 MG TABLET PO SCH (09:24)
[2019-04-19] MEDS: DOCUSATE SODIUM 250 MG CAPSULE PO SCH (09:25)
[2019-04-19] MEDS: OXYMETAZOLINE HCL 100 SPRAYS BOTTLE NAS SCH ×2 (09:25→20:47)
[2019-04-19] MEDS: SENNA 8.6 MG TABLET PO SCH (09:25)
[2019-04-19] MEDS: cefTRIAXone 2 GM in SODIUM CHLORIDE 0.9% MINIBAG 100 ML IV SCH (09:25)
[2019-04-19] MEDS: guaiFENesin 600 MG TABLET PO SCH ×2 (09:25→20:47)
[2019-04-19] MEDS: polyethylene glycoL 3350 17 GM PACKET PO SCH (09:26)
[2019-04-19] MEDS ORDERED: LORazepam 0.5 MG TABLET PO PRN (10:17)
[2019-04-19 10:32] LABS: ABG HCO3 25.1 mmol/L (22.0-26.0); ABG OXYGEN SATURATION 93 % (94-98); ABG PCO2 43 mmHg (34-45); ABG PH 7.39 (7.35-7.45); ABG PO2 65 mmHg (80-100); ABG TCO2 26.4 MMOL/L (21.0-29.0); ALLEN TEST POSITIVE
--- NOTE | 2019-04-19 10:57 | XRAY Report ---
Reason: SOB Procedure Date: 04/19/2019 Accession Number: [id number] / [id number] Procedure: XR - Chest 1 View X-Ray CPT Code: 88608 Final Report FULL RESULT: EXAM: CHEST RADIOGRAPHY EXAM DATE: 04/19/2019 10:38 AM. CLINICAL HISTORY: SOB. COMPARISON: CHEST 1 VIEW 04/18/2019 8:00 AM. TECHNIQUE: 1 view. FINDINGS: Lungs/Pleura: Increased interstitial markings bilaterally stable. Retrocardiac atelectasis. No pleural effusion. No pneumothorax. Mediastinum: Within exam limitations, the cardiomediastinal contour is normal. Other: None. IMPRESSION: Increased interstitial markings bilaterally stable. Retrocardiac atelectasis. RADIA
[2019-04-19] MEDS ORDERED: NICOTINE 14 MG PATCH TOP SCH (11:00)
[2019-04-19] MEDS ORDERED: ONDANSETRON 4 MG/2 ML VIAL IVP PRN (15:21)
[2019-04-19] MEDS ORDERED: tiZANidine 4 MG TABLET PO PRN (15:51)
[2019-04-19] MEDS ORDERED: IOVERSOL 320 100 ML VIAL IVP ONE ×2 (16:05→19:37)
--- NOTE | 2019-04-19 17:07 | PROVIDER PROGRESS NOTE ---
Assessment/Plan - Problem List (1) Acute respiratory failure with hypoxia Assessment/Plan: pt still present SOB and required 2 liter of O2 at 92% sat. pt did not take O2 at home. New CXR reveals stable compared with yesterday's one. pt also present ST as 110-120 at new EKG shown order CTA to r/o PE or other complications troponin is negative. increase solu-metrol to 80mg tid, pt still present wheezing continue supplement of O2 as needed continue antibiotics for pneumonia. COPD exacerbation pt still present wheezing and SOB Patient has underlying COPD, first diagnosed in ~ 2004. pt is still at smoking continue Xopenex and Duoneb, pulmicort increase solu-metrol to 80mg tid advise pt for [facility] center order for Pulmonary rehab Pneumonia new CXR reveals stable in image study. pt has no fever, or chill. blood culture is negative. order CTA to r/o PE or other complications continue Rocephin, Azithromycin Narcotic dependence Patient sees the [facility] pain clinic resume pt home [place] Tobacco dependence Offer nicotine patch daily Encourage cessation Obesity (BMI 30.0-34.9) Patient states she has had a 30 lb weight loss in the past few months, with no explanation as to why, order of CTA of chest with and without contrast Female bladder prolapse stable, resume home prazoson PTSD (post-traumatic stress disorder) Bipolar affective disorder Borderline personality disorder stable, continue home Seroquel - Current Meds Current Meds: Current Medications Generic Name Dose Route Start Last Admin Trade Name Danika PRN Reason Stop Dose Admin Azithromycin 500 mg 04/19/19 09:00 04/19/19 09:24 Zithromax PO 04/20/19 09:01 500 mg DAILY KARINA Administration Docusate Sodium 250 - 500 mg 04/19/19 09:00 04/19/19 09:25 Colace 250mg Capsule PO 250 mg DAILY KARINA Administration Guaifenesin 600 mg 04/18/19 12:00 04/19/19 09:25 Mucinex PO 600 mg BID KARINA Administration Ceftriaxone Sodium 2 gm/ 100 mls @ 100 mls/hr 04/19/19 09:00 04/19/19 11:50 Sodium Chloride IV Infused DAILY KARINA Infusion Levalbuterol HCl 1.25 mg 04/18/19 11:42 04/19/19 15:08 Xopenex INH 1.25 mg Q4H PRN Administration Shortness of Air/Wheezing Lorazepam 0.5 mg 04/18/19 11:52 04/19/19 15:04 Ativan Inj (Vial) IVP 0.5 mg Q2H PRN Administration Anxiety Morphine Sulfate 2 mg 04/18/19 11:43 04/19/19 15:42 Morphine (Carpuject) IVP 2 mg Q2HR PRN Administration PAIN Ondansetron HCl 4 mg 04/19/19 15:21 04/19/19 15:39 Zofran Inj IVP 4 mg Q4HR PRN Administration Nausea / Vomiting Oxymetazoline HCl 2 sprays 04/18/19 19:18 04/19/19 09:25 Afrin KALIN 04/20/19 21:01 2 sprays BID KARINA Administration Pantoprazole Sodium 40 mg 04/19/19 07:00 04/19/19 06:28 Protonix PO 40 mg QDAC KARINA Administration Polyethylene Glycol 17 gm 04/18/19 21:00 04/19/19 09:26 Miralax PO 17 gm DAILY KARINA Administration Prazosin HCl 1 mg 04/18/19 21:00 04/18/19 21:39 Minipress PO 1 mg QPM KARINA Administration Senna 8.6 - 17.2 mg 04/19/19 09:00 04/19/19 09:25 Senokot PO 8.6 mg DAILY KARINA Administration Sodium Chloride 10 ml 04/18/19 10:40 04/19/19 15:04 Normal Saline Flush 0.9% IVP 10 ml PRN PRN Administration NEEDED PER PROVIDER ORDERS Sodium Chloride 10 ml 04/18/19 17:00 04/19/19 09:27 Normal Saline Flush 0.9% IVP 10 ml 0100,0900,1700 KARINA Administration - Lab Result Fish Bone Diagrams: 04/19/19 05:20 04/19/19 05:20 - Additional Planning My Orders: My Active Orders 04/19/19 09:10 hydrALAZINE INJ [Apresoline Inj] 10 mg IVP QID PRN 04/19/19 10:14 Arterial Blood Gases - RT [RC] .ONCE 04/19/19 10:22 Resp Teach Nebulizer/MDI [RC] .ONCE 04/19/19 15:21 Ondansetron Inj [Zofran Inj] 4 mg IVP Q4HR PRN 04/19/19 15:49 ANGIO CHEST W/WO [CT] Stat 04/19/19 15:51 Enoxaparin [Lovenox] 40 mg SUBQ DAILY HYDROcodone/ACET 7.5/325 [[place] 7.5/325] 1 tab PO Q8H PRN Tizanidine HCl [Tizanidine HCl] 4 mg PO TID PRN 04/19/19 17:00 methylPREDNISolone SUCCINATE [SOLU-Medrol (125MG VIAL)] 80 mg IVP TID 04/19/19 19:00 Budesonide [Pulmicort] 0.5 mg INH RTBID 04/20/19 05:00 BMP - BASIC METABOLIC PANEL [CHEM] DAILYLAB CBC - COMP BLD CT W/AUTO DIFF [HEME] DAILYLAB 04/20/19 09:00 Loratadine [Claritin] 10 mg PO DAILY Nicotine 21 mg Patch [Nicoderm] 1 patch TOP DAILY QUEtiapine [SEROquel] 400 mg PO DAILY 04/21/19 05:00 BMP - BASIC METABOLIC PANEL [CHEM] DAILYLAB CBC - COMP BLD CT W/AUTO DIFF [HEME] DAILYLAB 04/22/19 05:00 BMP - BASIC METABOLIC PANEL [CHEM] DAILYLAB CBC - COMP BLD CT W/AUTO DIFF [HEME] DAILYLAB 04/23/19 05:00 BMP - BASIC METABOLIC PANEL [CHEM] DAILYLAB CBC - COMP BLD CT W/AUTO DIFF [HEME] DAILYLAB 04/24/19 05:00 BMP - BASIC METABOLIC PANEL [CHEM] DAILYLAB CBC - COMP BLD CT W/AUTO DIFF [HEME] DAILYLAB Subjective - Subjective Patient Reports: Shortness of Breath Objective Vital Signs: Vital Signs - 24 hr 04/18/19 04/19/19 04/19/19 20:51 01:10 08:00 Temperature 37.1 C Heart Rate 117 H 122 H Heart Rate [ 116 H 114 H Brachial] Respiratory 30 H 36 H 24 Rate Blood Pressure 147/98 H 185/119 H [Right Brachial artery] O2 Saturation 92 92 04/19/19 04/19/19 04/19/19 08:20 10:41 10:48 Temperature 37.1 C Heart Rate 118 H 118 H Heart Rate [ 112 H Brachial] Respiratory 24 24 Rate Blood Pressure 174/96 H [Right Brachial artery] O2 Saturation 94 03/03/20 03/03/20 03/03/20 11:45 15:13 15:43 Temperature 37.1 C Heart Rate 86 Heart Rate [ 112 H 120 H Brachial] Respiratory 24 22 Rate Blood Pressure 157/94 H 151/102 H [Right Brachial artery] O2 Saturation 90 L 92 Oxygen O2 Source Nasal cannula I&O (Last 24 Hrs): Intake and Output Totals x24h 04/17/19 04/18/19 04/19/19 23:59 23:59 23:59 Intake Total 2820 800 Output Total 1000 650 Balance 1820 150 General: Alert, Oriented x3, Mild distress HEENT: Atraumatic Neck: Supple Lymphatic: no adenopathy Neuro: Alert, Non Focal, Oriented Times 3 Cardiovascular: Regular rate Respiratory: Chest non-tender, Wheezes Abdomen: Normal bowel sounds, Soft Extremities: No edema, Normal pulses - Results Results: Laboratory Results WBC 17.8 x10^3/uL (4.8-10.8) H 04/19/19 05:20 RBC 4.08 10^6/uL (4.20-5.40) L 04/19/19 05:20 Hgb 13.3 g/dL (12.0-16.0) 04/19/19 05:20 Hct 39.9 % (37.0-47.0) 04/19/19 05:20 MCV 97.8 fL (81.0-99.0) 04/19/19 05:20 MCH 32.6 pg (27.0-31.0) H 04/19/19 05:20 MCHC 33.3 g/dL (32.0-36.0) 04/19/19 05:20 RDW 13.5 % (12.0-15.0) 04/19/19 05:20 Plt Count 180 10^3/uL (130-450) 04/19/19 05:20 MPV 9.7 fL (7.9-10.8) 04/19/19 05:20 Neut # (Auto) 15.8 10^3/uL (1.5-6.6) H 04/19/19 05:20 Lymph # (Auto) 0.9 10^3/uL (1.5-3.5) L 04/19/19 05:20 [place] # (Auto) 0.6 10^3/uL (0.0-1.0) 04/19/19 05:20 Eos # (Auto) 0.2 10^3/uL (0.0-0.7) 04/19/19 05:20 Baso # (Auto) 0.0 10^3/uL (0.0-0.1) 04/19/19 05:20 Absolute Nucleated RBC 0.00 x10^3/uL 04/19/19 05:20 Nucleated RBC % 0.0 /100WBC 04/19/19 05:20 Bld Gas Analysis Time 1027 04/19/19 10:27 Sample Site RIGHT RADIAL 04/19/19 10:27 ABG pH 7.39 (7.35-7.45) 04/19/19 10:27 ABG pCO2 43 mmHg (34-45) 04/19/19 10:27 ABG pO2 65 mmHg (80-100) L 04/19/19 10:27 ABG HCO3 25.1 mmol/L (22.0-26.0) 04/19/19 10:27 ABG Total CO2 26.4 MMOL/L (21.0-29.0) 04/19/19 10:27 ABG O2 Saturation 93 % (94-98) L 04/19/19 10:27 ABG Base Excess 0.0 mmol/L (-2.0-3.0) 04/19/19 10:27 Yann Test POSITIVE 04/19/19 10:27 O2 Delivery Device NASAL CANNULA 04/19/19 10:27 O2 Liters/Min 2.00 LPM 04/19/19 10:27 Sodium 137 mmol/L (135-145) 04/19/19 05:20 Potassium 3.6 mmol/L (3.5-5.0) 04/19/19 05:20 Chloride 103 mmol/L (101-111) 04/19/19 05:20 Carbon Dioxide 23 mmol/L (21-32) 04/19/19 05:20 Anion Gap 11.0 (6-13) 04/19/19 05:20 BUN 14 mg/dL (6-20) 04/19/19 05:20 Creatinine 0.7 mg/dL (0.4-1.0) 04/19/19 05:20 Estimated GFR (MDRD) 90 (>89) 04/19/19 05:20 Glucose 221 mg/dL (70-100) H 04/19/19 05:20 Glycated Hemoglobin 5.7 % (4.6-6.2) 04/19/19 05:20 Estim Average Glucose 117 (70-100) H 04/19/19 05:20 Lactic Acid 2.4 mmol/L (0.5-2.2) H 04/19/19 05:20 Calcium 8.8 mg/dL (8.5-10.3) 04/19/19 05:20 Magnesium 2.0 mg/dL (1.7-2.8) 04/19/19 05:20 Total Bilirubin 0.2 mg/dL (0.2-1.0) 04/19/19 05:20 AST 29 IU/L (10-42) 04/19/19 05:20 ALT 45 IU/L (10-60) 04/19/19 05:20 Alkaline Phosphatase 58 IU/L (42-121) 04/19/19 05:20 Troponin I High Sens 7.9 ng/L (2.3-14.8) 04/19/19 16:16 Total Protein 7.0 g/dL (6.7-8.2) 04/19/19 05:20 Albumin 3.8 g/dL (3.2-5.5) 04/19/19 05:20 Globulin 3.2 g/dL (2.1-4.2) 04/19/19 05:20 Albumin/Globulin Ratio 1.2 (1.0-2.2) 04/19/19 05:20 Lipase 22 U/L (22-51) 04/18/19 08:12 TSH 0.83 uIU/mL (0.34-5.60) 04/19/19 05:20 Urine Color YELLOW 04/18/19 08:39 Urine Clarity CLEAR (CLEAR) 04/18/19 08:39 Urine pH 6.0 PH (5.0-7.5) 04/18/19 08:39 Ur Specific [place] 1.025 (1.002-1.030) 04/18/19 08:39 Urine Protein NEGATIVE mg/dL (NEGATIVE) 04/18/19 08:39 Urine Glucose (UA) NEGATIVE mg/dL (NEGATIVE) 04/18/19 08:39 Urine Ketones NEGATIVE mg/dL (NEGATIVE) 04/18/19 08:39 Urine Occult Blood TRACE-INTA (NEGATIVE) 04/18/19 08:39 Urine Nitrite NEGATIVE (NEGATIVE) 04/18/19 08:39 Urine Bilirubin NEGATIVE (NEGATIVE) 04/18/19 08:39 Urine Urobilinogen 0.2 (NORMAL) E.U./dL (NORMAL) 04/18/19 08:39 Ur Leukocyte Esterase NEGATIVE (NEGATIVE) 04/18/19 08:39 Ur Microscopic Review NOT INDICATED 04/18/19 08:39 Urine Culture Comments NOT INDICATED 04/18/19 08:39 Urine HCG, Qual NEGATIVE 04/18/19 08:39 Urine Opiates Screen POSITIVE (NEGATIVE) H 04/18/19 08:39 Ur Oxycodone Screen NEGATIVE (NEGATIVE) 04/18/19 08:39 Urine Methadone Screen NEGATIVE (NEGATIVE) 04/18/19 08:39 Ur Propoxyphene Screen NEGATIVE (NEGATIVE) 04/18/19 08:39 Ur Barbiturates Screen NEGATIVE (NEGATIVE) 04/18/19 08:39 Ur Tricyclics Screen POSITIVE (NEGATIVE) H 04/18/19 08:39 Ur Phencyclidine Scrn NEGATIVE (NEGATIVE) 04/18/19 08:39 Ur Amphetamine Screen NEGATIVE (NEGATIVE) 04/18/19 08:39 U Methamphetamines Scrn NEGATIVE (NEGATIVE) 04/18/19 08:39 U Benzodiazepines Scrn NEGATIVE (NEGATIVE) 04/18/19 08:39 Urine Cocaine Screen NEGATIVE (NEGATIVE) 04/18/19 08:39 U Cannabinoids Screen NEGATIVE (NEGATIVE) 04/18/19 08:39 Influenza A (Rapid) Negative (Negative) 04/18/19 12:40 Influenza B (Rapid) Negative (Negative) 04/18/19 12:40 ABX Reporting Has patient been on IV antibiotics over the past 48 hours?: Yes Current Medications - Current Medications Current Medications: Active Medications Hydrocodone Bitart/Acetaminophen ([place] 7.5/325) 1 tab PO Q8H PRN PRN Reason: PAIN Last Admin: 04/19/19 17:13 Dose: 1 tab Azithromycin (Zithromax) 500 mg PO DAILY KARINA Stop: 04/20/19 09:01 Last Admin: 04/19/19 09:24 Dose: 500 mg Budesonide (Pulmicort) 0.5 mg INH RTBID [facility] Docusate Sodium (Colace 250mg Capsule) 250 - 500 mg PO DAILY [facility] Last Admin: 04/19/19 09:25 Dose: 250 mg Enoxaparin Sodium (Lovenox) 40 mg SUBQ DAILY [facility] Last Admin: 04/19/19 17:11 Dose: 40 mg Guaifenesin (Mucinex) 600 mg PO BID [facility] Last Admin: 04/19/19 09:25 Dose: 600 mg Hydralazine HCl (Apresoline Inj) 10 mg IVP QID PRN PRN Reason: Hypertensive Emergency Ceftriaxone Sodium 2 gm/ (Sodium Chloride) 100 mls @ 100 mls/hr IV DAILY [facility] Last Infusion: 04/19/19 11:50 Dose: Infused Levalbuterol HCl (Xopenex) 1.25 mg INH Q4H PRN PRN Reason: Shortness of Air/Wheezing Last Admin: 04/19/19 15:08 Dose: 1.25 mg Loratadine (Claritin) 10 mg PO DAILY [facility] Lorazepam (Ativan Inj (Vial)) 0.5 mg IVP Q2H PRN PRN Reason: Anxiety Last Admin: 04/19/19 17:13 Dose: 0.5 mg Methylprednisolone Sodium Succinate (Solu-Medrol (125mg Vial)) 80 mg IVP TID [facility] Last Admin: 04/19/19 17:12 Dose: 80 mg Morphine Sulfate (Morphine (Carpuject)) 2 mg IVP Q2HR PRN PRN Reason: PAIN Last Admin: 04/19/19 15:42 Dose: 2 mg Nicotine (Nicoderm) 1 patch TOP DAILY [facility] Ondansetron HCl (Zofran Inj) 4 mg IVP Q4HR PRN PRN Reason: Nausea / Vomiting Last Admin: 04/19/19 15:39 Dose: 4 mg Oxymetazoline HCl (Afrin) 2 sprays KALIN BID [facility] Stop: 04/20/19 21:01 Last Admin: 04/19/19 09:25 Dose: 2 sprays Pantoprazole Sodium (Protonix) 40 mg PO QDAC [facility] Last Admin: 04/19/19 06:28 Dose: 40 mg Polyethylene Glycol (Miralax) 17 gm PO DAILY [facility] Last Admin: 04/19/19 09:26 Dose: 17 gm Prazosin HCl (Minipress) 1 mg PO QPM [facility] Last Admin: 04/18/19 21:39 Dose: 1 mg Quetiapine Fumarate (Seroquel) 400 mg PO DAILY [facility] Senna (Senokot) 8.6 - 17.2 mg PO DAILY [facility] Last Admin: 04/19/19 09:25 Dose: 8.6 mg Sodium Chloride (Normal Saline Flush 0.9%) 10 ml IVP PRN PRN PRN Reason: NEEDED PER PROVIDER ORDERS Last Admin: 04/19/19 15:04 Dose: 10 ml Sodium Chloride (Normal Saline Flush 0.9%) 10 ml IVP 0100,0900,1700 [facility] Last Admin: 04/19/19 09:27 Dose: 10 ml Tizanidine HCl (Zanaflex) 4 mg PO TID PRN PRN Reason: muscle spasm Hydrocodone/Acetaminophen [Hydrocodone-Acetamin 7.5-325] 1 tab PO Q8H PRN 04/19/19 Loratadine [Allergy] 10 mg PO DAILY 04/19/19 Meloxicam 7.5 mg PO DAILY PRN 04/19/19 Mometasone/Formoterol [Dulera 100 Mcg-5 Mcg Inhaler] 2 inh PO DAILY 04/19/19 Prazosin HCl 1 mg PO DAILY 04/19/19 Quetiapine Fumarate [Seroquel] 400 mg PO DAILY 04/19/19 Tizanidine HCl 4 mg PO TID PRN 04/19/19
[2019-04-19] MEDS: ENOXAPARIN 40 MG/0.4 ML SYRINGE SUBQ SCH (17:11)
[2019-04-19] MEDS: HYDROcod/ACETAM 7.5 MG/325 MG TABLET PO PRN (17:13)
[2019-04-19] MEDS: BUDESONIDE 0.5 MG/2 ML NEB INH SCH (18:16)
--- NOTE | 2019-04-19 19:31 | CT Report ---
Reason: SOB Procedure Date: 04/19/2019 Accession Number: [id number] / [id number] Procedure: CT - ANGIO CHEST W/WO CPT Code: Final Report FULL RESULT: EXAM: CT ANGIOGRAM CHEST EXAM DATE: 04/19/2019 06:06 PM. CLINICAL HISTORY: SOB. COMPARISON: None. TECHNIQUE: Routine helical imaging was performed through the chest in the pulmonary arterial phase. IV Contrast: 62 OPTIRAY 320. Reconstructions: Coronal 3-D MIP reconstructions. Sagittal and coronal. In accordance with CT protocol optimization, one or more of the following dose reduction techniques were utilized for this exam: automated exposure control, adjustment of mA and/or KV based on patient size, or use of iterative reconstructive technique. FINDINGS: Pulmonary Arteries: Diagnostic quality: Adequate through the segmental arteries. No evidence for acute or chronic pulmonary emboli. RV/LV is within normal limits. There is no interventricular septal bowing. There is no reflux of contrast material in the IVC. Lungs/Pleura: No consolidation, nodules, or edema. No effusions or pneumothorax. Mediastinum: Normal. No cardiac enlargement or adenopathy. Thoracic Aorta: Unremarkable. Upper Abdomen: Unremarkable. Other: None. IMPRESSION: Normal pulmonary CT angiogram. No pulmonary emboli. RADIA
[2019-04-19] MEDS: PRAZOSIN 1 MG CAPSULE PO SCH (20:47)
[2019-04-20] MEDS: SODIUM CHLORIDE FLUSH 0.9% 10 ML SYRINGE IVP SCH ×3 (00:56→16:19)
[2019-04-20] MEDS: MORPHINE 2 MG/ML CARPUJECT IVP PRN ×6 (00:56→21:47)
[2019-04-20] MEDS: HYDROcod/ACETAM 7.5 MG/325 MG TABLET PO PRN ×3 (05:13→21:45)
[2019-04-20] MEDS: LORazepam 2 MG/ML VIAL IVP PRN ×4 (05:14→21:47)
[2019-04-20 05:20] LABS: BASOPHILS % (AUTO) 0.2 %; EOSINOPHILS % (AUTO) 0.1 %; HGB - HEMOGLOBIN 12.8 g/dL (12.0-16.0); MEAN CORPUSCULAR HEMOGLOBIN 30.7 pg (27.0-31.0); MEAN CORPUSCULAR HGB CONC 31.8 g/dL (32.0-36.0); MEAN CORPUSCULAR VOLUME 96.6 fL (81.0-99.0); MEAN PLATELET VOLUME 9.8 fL (7.9-10.8); MONOCYTES % (AUTO) 3.2 %; NEUTROPHILS % (AUTO) 90.2 %; PLT - PLATELET COUNT 205 10^3/uL (130-450); RED BLOOD COUNT 4.17 10^6/uL (4.20-5.40); RED CELL DISTRIBUTION WIDTH 13.6 % (12.0-15.0); WHITE BLOOD COUNT 21.2 x10^3/uL (4.8-10.8)
[2019-04-20 05:26] LABS: CALCIUM 8.8 mg/dL (8.5-10.3); CREATININE 0.6 mg/dL (0.4-1.0)
[2019-04-20 05:34] LABS: ABNORMAL LYMPHS % (MANUAL) 0 %
[2019-04-20] MEDS: BUDESONIDE 0.5 MG/2 ML NEB INH SCH ×2 (05:47→20:16)
[2019-04-20] MEDS: LEVALBUTEROL 1.25 MG/3 ML NEB INH PRN ×3 (05:47→20:15)
[2019-04-20 06:02] LABS: BAND NEUTROPHILS % (MANUAL) 5 %; DIFFERENTIAL COMMENT MANUAL DIFFERENTIAL; LYMPHOCYTES # (MANUAL) 1.3 10^3/uL (1.5-3.5); LYMPHOCYTES % (MANUAL) 6 %; METAMYELOCYTES % (MANUAL) 1 %; MONOCYTES # (MANUAL) 0.8 10^3/uL (0.0-1.0); PLATELET ESTIMATE, MANUAL NORMAL (130-450,000) (NORMAL); RBC MORPHOLOGY (MULTIPLE) NORMAL APPEARANCE (NORMAL)
[2019-04-20] MEDS: methylPREDNISolone SUCCINATE 125 MG/2 ML VIAL IVP SCH ×3 (06:40→21:47)
[2019-04-20] MEDS: PANTOPRAZOLE 40 MG TABLET PO SCH (06:43)
[2019-04-20] MEDS ORDERED: buPROPion XL 150 MG TABLET PO SCH (09:00)
[2019-04-20] MEDS ORDERED: PRAZOSIN 1 MG CAPSULE PO SCH (09:00)
[2019-04-20] MEDS ORDERED: MAGNESIUM HYDROXIDE 2,400 MG/30 ML UDC PO ONE (09:00)
[2019-04-20] MEDS: cefTRIAXone 2 GM in SODIUM CHLORIDE 0.9% MINIBAG 100 ML IV SCH (09:22)
[2019-04-20] MEDS: NICOTINE 21 MG PATCH TOP SCH (09:22)
[2019-04-20] MEDS: ENOXAPARIN 40 MG/0.4 ML SYRINGE SUBQ SCH (09:22)
[2019-04-20] MEDS: polyethylene glycoL 3350 17 GM PACKET PO SCH (09:22)
[2019-04-20] MEDS: LORATADINE 10 MG TABLET PO SCH (09:23)
[2019-04-20] MEDS: QUEtiapine 100 MG TABLET PO SCH (09:23)
[2019-04-20] MEDS: guaiFENesin 600 MG TABLET PO SCH ×2 (09:23→21:45)
[2019-04-20] MEDS: SENNA 8.6 MG TABLET PO SCH (09:24)
[2019-04-20] MEDS: AZITHROMYCIN 250 MG TABLET PO SCH (09:24)
[2019-04-20] MEDS: DOCUSATE SODIUM 250 MG CAPSULE PO SCH (09:24)
[2019-04-20] MEDS: OXYMETAZOLINE HCL 100 SPRAYS BOTTLE NAS SCH ×2 (09:25→21:44)
[2019-04-20] MEDS: SODIUM CHLORIDE FLUSH 0.9% 10 ML SYRINGE IVP PRN ×4 (12:14→21:48)
--- NOTE | 2019-04-20 15:24 | PROVIDER PROGRESS NOTE ---
Assessment/Plan - Problem List (1) Acute respiratory failure with hypoxia Assessment/Plan: 3/4 pt report she feel significant better today. SOB symptoms are reduced. CTA reveals no PE continue supplement of O2 as needed continue antibiotics for pneumonia. continue steroid continue breath treatment pt still present SOB and required 2 liter of O2 at 92% sat. pt did not take O2 at home. New CXR reveals stable compared with yesterday's one. pt also present ST as 110-120 at new EKG shown order CTA to r/o PE or other complications troponin is negative. increase solu-metrol to 80mg tid, pt still present wheezing continue supplement of O2 as needed continue antibiotics for pneumonia. COPD exacerbation 3/4 pt report she feel better. pt's lung sound still present wheezing continue steroid continue supplement of O2 as needed continue antibiotics for pneumonia. continue breath treatment pt still present wheezing and SOB Patient has underlying COPD, first diagnosed in ~ 2004. pt is still at smoking continue Xopenex and Duoneb, pulmicort increase solu-metrol to 80mg tid advise pt for [facility] center order for Pulmonary rehab Pneumonia 3/4 pt report she feel better, and her cough is slight better as well. continue Rocephin, Azithromycin new CXR reveals stable in image study. pt has no fever, or chill. blood culture is negative. order CTA to r/o PE or other complications continue Rocephin, Azithromycin Narcotic dependence Patient sees the [facility] pain clinic resume pt home [place] Tobacco dependence Offer nicotine patch daily Encourage cessation Obesity (BMI 30.0-34.9) Patient states she has had a 30 lb weight loss in the past few months, with no explanation as to why, order of CTA of chest with and without contrast Female bladder prolapse stable, resume home prazoson PTSD (post-traumatic stress disorder) Bipolar affective disorder Borderline personality disorder anxiety stable, continue home Seroquel and Ativan PRN - Current Meds Current Meds: Current Medications Generic Name Dose Route Start Last Admin Trade Name Freq PRN Reason Stop Dose Admin Hydrocodone Bitart/Acetaminophen 1 tab 04/19/19 15:51 04/20/19 13:11 [place] 7.5/325 PO 1 tab Q8H PRN Administration PAIN Budesonide 0.5 mg 04/19/19 19:00 04/20/19 05:47 Pulmicort INH 0.5 mg RTBID KARINA Administration Docusate Sodium 250 - 500 mg 04/19/19 09:00 04/20/19 09:24 Colace 250mg Capsule PO 500 mg DAILY KARINA Administration Enoxaparin Sodium 40 mg 04/19/19 15:51 04/20/19 09:22 Lovenox SUBQ 40 mg DAILY KARINA Administration Guaifenesin 600 mg 04/18/19 12:00 04/20/19 09:23 Mucinex PO 600 mg BID KARINA Administration Ceftriaxone Sodium 2 gm/ 100 mls @ 100 mls/hr 04/19/19 09:00 04/20/19 11:58 Sodium Chloride IV Infused DAILY KARINA Infusion Levalbuterol HCl 1.25 mg 04/18/19 11:42 04/20/19 12:51 Xopenex INH 1.25 mg Q4H PRN Administration Shortness of Air/Wheezing Loratadine 10 mg 04/20/19 09:00 04/20/19 09:23 Claritin PO 10 mg DAILY KARINA Administration Lorazepam 0.5 mg 04/18/19 11:52 04/20/19 05:14 Ativan Inj (Vial) IVP 0.5 mg Q2H PRN Administration Anxiety Methylprednisolone Sodium Succinate 80 mg 04/19/19 17:00 04/20/19 13:11 Solu-Medrol (125mg Vial) IVP 80 mg TID KARINA Administration Morphine Sulfate 2 mg 04/18/19 11:43 04/20/19 12:14 Morphine (Carpuject) IVP 2 mg Q2HR PRN Administration PAIN Nicotine 1 patch 04/20/19 09:00 04/20/19 09:22 Nicoderm TOP Not Given DAILY [facility] Ondansetron HCl 4 mg 04/19/19 15:21 04/19/19 15:39 Zofran Inj IVP 4 mg Q4HR PRN Administration Nausea / Vomiting Oxymetazoline HCl 2 sprays 04/18/19 19:18 04/20/19 09:25 Afrin KALIN 04/20/19 21:01 2 sprays BID KARINA Administration Pantoprazole Sodium 40 mg 04/19/19 07:00 04/20/19 06:43 Protonix PO 40 mg QDAC KARINA Administration Polyethylene Glycol 17 gm 04/18/19 21:00 04/20/19 09:22 Miralax PO 17 gm DAILY KARINA Administration Prazosin HCl 1 mg 04/18/19 21:00 04/19/19 20:47 Minipress PO 1 mg QPM KARINA Administration Quetiapine Fumarate 400 mg 04/20/19 09:00 04/20/19 09:23 Seroquel PO 400 mg DAILY KARINA Administration Senna 8.6 - 17.2 mg 04/19/19 09:00 04/20/19 09:24 Senokot PO 17.2 mg DAILY KARINA Administration Sodium Chloride 10 ml 04/18/19 10:40 04/20/19 12:14 Normal Saline Flush 0.9% IVP 10 ml PRN PRN Administration NEEDED PER PROVIDER ORDERS Sodium Chloride 10 ml 04/18/19 17:00 04/20/19 09:28 Normal Saline Flush 0.9% IVP 10 ml 0100,0900,1700 KARINA Administration - Lab Result Fish Bone Diagrams: 04/20/19 04:35 04/20/19 04:35 - Additional Planning My Orders: My Active Orders 04/19/19 15:21 Ondansetron Inj [Zofran Inj] 4 mg IVP Q4HR PRN 04/19/19 15:51 Enoxaparin [Lovenox] 40 mg SUBQ DAILY HYDROcodone/ACET 7.5/325 [[place] 7.5/325] 1 tab PO Q8H PRN tiZANidine [Zanaflex] 4 mg PO TID PRN 04/19/19 17:00 methylPREDNISolone SUCCINATE [SOLU-Medrol (125MG VIAL)] 80 mg IVP TID 04/19/19 19:00 Budesonide [Pulmicort] 0.5 mg INH RTBID 04/20/19 Evaluate and Treat OT [OT] Routine Evaluate and Treat PT [PT] Routine 04/20/19 09:00 Loratadine [Claritin] 10 mg PO DAILY Nicotine 21 mg Patch [Nicoderm] 1 patch TOP DAILY QUEtiapine [SEROquel] 400 mg PO DAILY 04/21/19 05:00 BMP - BASIC METABOLIC PANEL [CHEM] DAILYLAB CBC - COMP BLD CT W/AUTO DIFF [HEME] DAILYLAB 04/22/19 05:00 BMP - BASIC METABOLIC PANEL [CHEM] DAILYLAB CBC - COMP BLD CT W/AUTO DIFF [HEME] DAILYLAB 04/23/19 05:00 BMP - BASIC METABOLIC PANEL [CHEM] DAILYLAB CBC - COMP BLD CT W/AUTO DIFF [HEME] DAILYLAB 04/24/19 05:00 BMP - BASIC METABOLIC PANEL [CHEM] DAILYLAB CBC - COMP BLD CT W/AUTO DIFF [HEME] DAILYLAB Subjective - Subjective Patient Reports: Feeling Better Objective Vital Signs: Vital Signs - 24 hr 04/19/19 04/19/19 04/19/19 15:43 18:17 23:54 Temperature 37.1 C Heart Rate 115 H 82 Heart Rate [ 120 H Brachial] Heart Rate [ Sitting] Heart Rate [ Supine] Respiratory 22 24 20 Rate Blood Pressure 151/102 H [Right Brachial artery] Blood Pressure [Sitting] Blood Pressure [Supine] O2 Saturation 92 04/19/19 04/20/19 04/20/19 23:55 05:49 06:19 Temperature 36.7 C 36.9 C Heart Rate 106 H Heart Rate [ 109 H 114 H Brachial] Heart Rate [ Sitting] Heart Rate [ Supine] Respiratory 18 22 20 Rate Blood Pressure 149/94 H 149/96 H [Right Brachial artery] Blood Pressure [Sitting] Blood Pressure [Supine] O2 Saturation 94 93 04/20/19 04/20/19 04/20/19 07:34 10:35 11:15 Temperature 37.1 C 37.2 C Heart Rate Heart Rate [ 104 H 80 Brachial] Heart Rate [ 102 H Sitting] Heart Rate [ 101 H Supine] Respiratory 18 24 Rate Blood Pressure 148/85 H 149/77 H [Right Brachial artery] Blood Pressure 149/103 H [Sitting] Blood Pressure 148/89 H [Supine] O2 Saturation 91 L 90 L 04/20/19 04/20/19 12:53 13:25 Temperature Heart Rate 124 H Heart Rate [ Brachial] Heart Rate [ 102 H Sitting] Heart Rate [ 101 H Supine] Respiratory 24 Rate Blood Pressure [Right Brachial artery] Blood Pressure 149/103 H [Sitting] Blood Pressure 148/89 H [Supine] O2 Saturation Oxygen O2 Source Nasal cannula I&O (Last 24 Hrs): Intake and Output Totals x24h 04/18/19 04/19/19 04/20/19 23:59 23:59 23:59 Intake Total 2820 1000 1000 Output Total 1000 800 800 Balance 1820 200 200 General: Alert, Oriented x3, No acute distress HEENT: Atraumatic Neck: Supple Lymphatic: no adenopathy Neuro: Alert, Non Focal, Oriented Times 3 Cardiovascular: Regular rate, Normal S1, Normal S2 Respiratory: Chest non-tender, Wheezes Abdomen: Normal bowel sounds, Soft, No tenderness Extremities: No edema, Normal pulses - Results Results: Laboratory Results WBC 21.2 x10^3/uL (4.8-10.8) H 04/20/19 04:35 RBC 4.17 10^6/uL (4.20-5.40) L 04/20/19 04:35 Hgb 12.8 g/dL (12.0-16.0) 04/20/19 04:35 Hct 40.3 % (37.0-47.0) 04/20/19 04:35 MCV 96.6 fL (81.0-99.0) 04/20/19 04:35 MCH 30.7 pg (27.0-31.0) 04/20/19 04:35 MCHC 31.8 g/dL (32.0-36.0) L 04/20/19 04:35 RDW 13.6 % (12.0-15.0) 04/20/19 04:35 Plt Count 205 10^3/uL (130-450) 04/20/19 04:35 MPV 9.8 fL (7.9-10.8) 04/20/19 04:35 Neut # (Auto) Not Reportable 04/20/19 04:35 Lymph # (Auto) Not Reportable 04/20/19 04:35 [place] # (Auto) Not Reportable 04/20/19 04:35 Eos # (Auto) Not Reportable 04/20/19 04:35 Baso # (Auto) Not Reportable 04/20/19 04:35 Absolute Nucleated RBC Not Reportable 04/20/19 04:35 Total Counted 100 04/20/19 04:35 Band Neuts % (Manual) 5 % (0-10) 04/20/19 04:35 Abnorm Lymph % (Manual) 0 % 04/20/19 04:35 Metamyelocytes % 1 % (-0) H 04/20/19 04:35 Nucleated RBC % Not Reportable 04/20/19 04:35 Neutrophils # (Manual) 18.9 10^3/uL (1.5-6.6) H 04/20/19 04:35 Lymphocytes # (Manual) 1.3 10^3/uL (1.5-3.5) L 04/20/19 04:35 Monocytes # (Manual) 0.8 10^3/uL (0.0-1.0) 04/20/19 04:35 Eosinophils # (Manual) 0.0 10^3/uL (0-0.7) 04/20/19 04:35 Basophils # (Manual) 0.0 10^3/uL (0-0.1) 04/20/19 04:35 Differential Comment MANUAL DIFFERENTIAL 04/20/19 04:35 Platelet Estimate NORMAL (130-450,000) (NORMAL) 04/20/19 04:35 RBC Morph Micro Appear NORMAL APPEARANCE (NORMAL) 04/20/19 04:35 Bld Gas Analysis Time 1027 04/19/19 10:27 Sample Site RIGHT RADIAL 04/19/19 10:27 ABG pH 7.39 (7.35-7.45) 04/19/19 10:27 ABG pCO2 43 mmHg (34-45) 04/19/19 10:27 ABG pO2 65 mmHg (80-100) L 04/19/19 10:27 ABG HCO3 25.1 mmol/L (22.0-26.0) 04/19/19 10:27 ABG Total CO2 26.4 MMOL/L (21.0-29.0) 04/19/19 10:27 ABG O2 Saturation 93 % (94-98) L 04/19/19 10:27 ABG Base Excess 0.0 mmol/L (-2.0-3.0) 04/19/19 10:27 Yann Test POSITIVE 04/19/19 10:27 O2 Delivery Device NASAL CANNULA 04/19/19 10:27 O2 Liters/Min 2.00 LPM 04/19/19 10:27 Sodium 140 mmol/L (135-145) 04/20/19 04:35 Potassium 4.2 mmol/L (3.5-5.0) 04/20/19 04:35 Chloride 104 mmol/L (101-111) 04/20/19 04:35 Carbon Dioxide 27 mmol/L (21-32) 04/20/19 04:35 Anion Gap 9.0 (6-13) 04/20/19 04:35 BUN 21 mg/dL (6-20) H 04/20/19 04:35 Creatinine 0.6 mg/dL (0.4-1.0) 04/20/19 04:35 Estimated GFR (MDRD) 108 (>89) 04/20/19 04:35 Glucose 188 mg/dL (70-100) H 04/20/19 04:35 Glycated Hemoglobin 5.7 % (4.6-6.2) 04/19/19 05:20 Estim Average Glucose 117 (70-100) H 04/19/19 05:20 Lactic Acid 2.4 mmol/L (0.5-2.2) H 04/19/19 05:20 Calcium 8.8 mg/dL (8.5-10.3) 04/20/19 04:35 Magnesium 2.0 mg/dL (1.7-2.8) 04/19/19 05:20 Total Bilirubin 0.2 mg/dL (0.2-1.0) 04/19/19 05:20 AST 29 IU/L (10-42) 04/19/19 05:20 ALT 45 IU/L (10-60) 04/19/19 05:20 Alkaline Phosphatase 58 IU/L (42-121) 04/19/19 05:20 Troponin I High Sens 7.9 ng/L (2.3-14.8) 04/19/19 16:16 Total Protein 7.0 g/dL (6.7-8.2) 04/19/19 05:20 Albumin 3.8 g/dL (3.2-5.5) 04/19/19 05:20 Globulin 3.2 g/dL (2.1-4.2) 04/19/19 05:20 Albumin/Globulin Ratio 1.2 (1.0-2.2) 04/19/19 05:20 Lipase 22 U/L (22-51) 04/18/19 08:12 TSH 0.83 uIU/mL (0.34-5.60) 04/19/19 05:20 Urine Color YELLOW 04/18/19 08:39 Urine Clarity CLEAR (CLEAR) 04/18/19 08:39 Urine pH 6.0 PH (5.0-7.5) 04/18/19 08:39 Ur Specific [place] 1.025 (1.002-1.030) 04/18/19 08:39 Urine Protein NEGATIVE mg/dL (NEGATIVE) 04/18/19 08:39 Urine Glucose (UA) NEGATIVE mg/dL (NEGATIVE) 04/18/19 08:39 Urine Ketones NEGATIVE mg/dL (NEGATIVE) 04/18/19 08:39 Urine Occult Blood TRACE-INTA (NEGATIVE) 04/18/19 08:39 Urine Nitrite NEGATIVE (NEGATIVE) 04/18/19 08:39 Urine Bilirubin NEGATIVE (NEGATIVE) 04/18/19 08:39 Urine Urobilinogen 0.2 (NORMAL) E.U./dL (NORMAL) 04/18/19 08:39 Ur Leukocyte Esterase NEGATIVE (NEGATIVE) 04/18/19 08:39 Ur Microscopic Review NOT INDICATED 04/18/19 08:39 Urine Culture Comments NOT INDICATED 04/18/19 08:39 Urine HCG, Qual NEGATIVE 04/18/19 08:39 Urine Opiates Screen POSITIVE (NEGATIVE) H 04/18/19 08:39 Ur Oxycodone Screen NEGATIVE (NEGATIVE) 04/18/19 08:39 Urine Methadone Screen NEGATIVE (NEGATIVE) 04/18/19 08:39 Ur Propoxyphene Screen NEGATIVE (NEGATIVE) 04/18/19 08:39 Ur Barbiturates Screen NEGATIVE (NEGATIVE) 04/18/19 08:39 Ur Tricyclics Screen POSITIVE (NEGATIVE) H 04/18/19 08:39 Ur Phencyclidine Scrn NEGATIVE (NEGATIVE) 04/18/19 08:39 Ur Amphetamine Screen NEGATIVE (NEGATIVE) 04/18/19 08:39 U Methamphetamines Scrn NEGATIVE (NEGATIVE) 04/18/19 08:39 U Benzodiazepines Scrn NEGATIVE (NEGATIVE) 04/18/19 08:39 Urine Cocaine Screen NEGATIVE (NEGATIVE) 04/18/19 08:39 U Cannabinoids Screen NEGATIVE (NEGATIVE) 04/18/19 08:39 Influenza A (Rapid) Negative (Negative) 04/18/19 12:40 Influenza B (Rapid) Negative (Negative) 04/18/19 12:40 ABX Reporting Has patient been on IV antibiotics over the past 48 hours?: Yes Current Medications - Current Medications Current Medications: Active Medications Hydrocodone Bitart/Acetaminophen ([place] 7.5/325) 1 tab PO Q8H PRN PRN Reason: PAIN Last Admin: 04/20/19 13:11 Dose: 1 tab Budesonide (Pulmicort) 0.5 mg INH RTBID [facility] Last Admin: 04/20/19 05:47 Dose: 0.5 mg Docusate Sodium (Colace 250mg Capsule) 250 - 500 mg PO DAILY [facility] Last Admin: 04/20/19 09:24 Dose: 500 mg Enoxaparin Sodium (Lovenox) 40 mg SUBQ DAILY [facility] Last Admin: 04/20/19 09:22 Dose: 40 mg Guaifenesin (Mucinex) 600 mg PO BID [facility] Last Admin: 04/20/19 09:23 Dose: 600 mg Hydralazine HCl (Apresoline Inj) 10 mg IVP QID PRN PRN Reason: Hypertensive Emergency Ceftriaxone Sodium 2 gm/ (Sodium Chloride) 100 mls @ 100 mls/hr IV DAILY [facility] Last Infusion: 04/20/19 11:58 Dose: Infused Levalbuterol HCl (Xopenex) 1.25 mg INH Q4H PRN PRN Reason: Shortness of Air/Wheezing Last Admin: 04/20/19 12:51 Dose: 1.25 mg Loratadine (Claritin) 10 mg PO DAILY [facility] Last Admin: 04/20/19 09:23 Dose: 10 mg Lorazepam (Ativan Inj (Vial)) 0.5 mg IVP Q2H PRN PRN Reason: Anxiety Last Admin: 04/20/19 05:14 Dose: 0.5 mg Methylprednisolone Sodium Succinate (Solu-Medrol (125mg Vial)) 60 mg IVP TID [facility] Morphine Sulfate (Morphine (Carpuject)) 2 mg IVP Q2HR PRN PRN Reason: PAIN Last Admin: 04/20/19 12:14 Dose: 2 mg Nicotine (Nicoderm) 1 patch TOP DAILY [facility] Last Admin: 04/20/19 09:22 Dose: Not Given Ondansetron HCl (Zofran Inj) 4 mg IVP Q4HR PRN PRN Reason: Nausea / Vomiting Last Admin: 04/19/19 15:39 Dose: 4 mg Oxymetazoline HCl (Afrin) 2 sprays KALIN BID [facility] Stop: 04/20/19 21:01 Last Admin: 04/20/19 09:25 Dose: 2 sprays Pantoprazole Sodium (Protonix) 40 mg PO QDAC [facility] Last Admin: 04/20/19 06:43 Dose: 40 mg Polyethylene Glycol (Miralax) 17 gm PO DAILY [facility] Last Admin: 04/20/19 09:22 Dose: 17 gm Prazosin HCl (Minipress) 1 mg PO QPM [facility] Last Admin: 04/19/19 20:47 Dose: 1 mg Quetiapine Fumarate (Seroquel) 400 mg PO DAILY [facility] Last Admin: 04/20/19 09:23 Dose: 400 mg Senna (Senokot) 8.6 - 17.2 mg PO DAILY [facility] Last Admin: 04/20/19 09:24 Dose: 17.2 mg Sodium Chloride (Normal Saline Flush 0.9%) 10 ml IVP PRN PRN PRN Reason: NEEDED PER PROVIDER ORDERS Last Admin: 04/20/19 12:14 Dose: 10 ml Sodium Chloride (Normal Saline Flush 0.9%) 10 ml IVP 0100,0900,1700 [facility] Last Admin: 04/20/19 09:28 Dose: 10 ml Tizanidine HCl (Zanaflex) 4 mg PO TID PRN PRN Reason: muscle spasm Hydrocodone/Acetaminophen [Hydrocodone-Acetamin 7.5-325] 1 tab PO Q8H PRN 04/19/19 Loratadine [Allergy] 10 mg PO DAILY 04/19/19 Meloxicam 7.5 mg PO DAILY PRN 04/19/19 Mometasone/Formoterol [Dulera 100 Mcg-5 Mcg Inhaler] 2 inh PO DAILY 04/19/19 Prazosin HCl 1 mg PO DAILY 04/19/19 Quetiapine Fumarate [Seroquel] 400 mg PO DAILY 04/19/19 Tizanidine HCl 4 mg PO TID PRN 04/19/19
[2019-04-20] MEDS: PRAZOSIN 1 MG CAPSULE PO SCH (21:45)
[2019-04-21] MEDS: LORazepam 2 MG/ML VIAL IVP PRN ×4 (01:00→11:20)
[2019-04-21] MEDS: MORPHINE 2 MG/ML CARPUJECT IVP PRN ×4 (01:02→11:20)
[2019-04-21] MEDS: SODIUM CHLORIDE FLUSH 0.9% 10 ML SYRINGE IVP SCH ×2 (01:03→08:34)
[2019-04-21] MEDS: LEVALBUTEROL 1.25 MG/3 ML NEB INH PRN ×2 (01:08→07:40)
[2019-04-21 05:30] LABS: BASOPHILS # (AUTO) 0.1 10^3/uL (0.0-0.1); BASOPHILS % (AUTO) 0.3 %; HGB - HEMOGLOBIN 13.3 g/dL (12.0-16.0); LYMPHOCYTES # (AUTO) 1.5 10^3/uL (1.5-3.5); MEAN CORPUSCULAR HGB CONC 32.3 g/dL (32.0-36.0); MONOCYTES # (AUTO) 0.9 10^3/uL (0.0-1.0); MONOCYTES % (AUTO) 4.9 %; NEUTROPHILS # (AUTO) 15.4 10^3/uL (1.5-6.6); NEUTROPHILS % (AUTO) 84.1 %; PLT - PLATELET COUNT 201 10^3/uL (130-450); RED BLOOD COUNT 4.29 10^6/uL (4.20-5.40); RED CELL DISTRIBUTION WIDTH 13.7 % (12.0-15.0); WHITE BLOOD COUNT 18.3 x10^3/uL (4.8-10.8)
[2019-04-21 05:31] LABS: CALCIUM 8.6 mg/dL (8.5-10.3); CREATININE 0.7 mg/dL (0.4-1.0)
[2019-04-21] MEDS: methylPREDNISolone SUCCINATE 125 MG/2 ML VIAL IVP SCH (06:31)
[2019-04-21] MEDS: PANTOPRAZOLE 40 MG TABLET PO SCH (06:37)
[2019-04-21] MEDS: HYDROcod/ACETAM 7.5 MG/325 MG TABLET PO PRN (06:37)
[2019-04-21] MEDS ORDERED: MAGNESIUM CITRATE 296 ML BOTTLE PO ONE (07:30)
[2019-04-21] MEDS: BUDESONIDE 0.5 MG/2 ML NEB INH SCH (07:40)
[2019-04-21 08:17] VITALS: BP 151/99
[2019-04-21] MEDS: polyethylene glycoL 3350 17 GM PACKET PO SCH (08:23)
[2019-04-21] MEDS: QUEtiapine 100 MG TABLET PO SCH (08:23)
[2019-04-21] MEDS: SENNA 8.6 MG TABLET PO SCH (08:24)
[2019-04-21] MEDS: ENOXAPARIN 40 MG/0.4 ML SYRINGE SUBQ SCH (08:24)
[2019-04-21] MEDS: DOCUSATE SODIUM 250 MG CAPSULE PO SCH (08:24)
[2019-04-21] MEDS: LORATADINE 10 MG TABLET PO SCH (08:24)
[2019-04-21] MEDS: guaiFENesin 600 MG TABLET PO SCH (08:24)
[2019-04-21] MEDS: NICOTINE 21 MG PATCH TOP SCH (08:25)
[2019-04-21] MEDS: cefTRIAXone 2 GM in SODIUM CHLORIDE 0.9% MINIBAG 100 ML IV SCH (08:26)
[2019-04-21] MEDS ORDERED: MAGNESIUM CITRATE 296 ML BOTTLE PO SCH (09:00)
--- NOTE | 2019-04-21 13:12 | Discharge Plan ---
Discharge Plan Problem Reviewed?: Yes Disposition: Home, Self Care Condition: Poor Prescriptions: cefUROXime axetiL [Ceftin] 250 mg PO Q12H #10 tablet predniSONE [Deltasone] 20 mg PO [id number] #[id number] tab Diet: Regular Activity Restrictions: Activity as Tolerated Shower Restrictions: No (fall precaution) Instruction Topics: Prednisone tablets, Cefuroxime tablets, Smoking Health Effects Health Concerns: COPD and pneumonia Plan of Treatment: you are prescribed Prednisone and Ceftin antibiotics for your COPD and pne [place]onia. you may start your home meds as your schedule. you are prescribed home oxygen, please followup RT's instruction for safely using home oxygen. you are highly recommended to quit your cigarette smoking. You were evaluated and treated by PT/OT, home health PT is recommended for you. Please followup your pulomologist closely and followup pulmonary rehab. Care Goals: stabilization and improvement of your medical conditions Assessment: discussed with you about the care plan, you understood that. Additional Instructions or Follow Up instructions: you may followup your PCP in one week, followup your counter attendant as out-pt. Should your symptoms returns or worsen, you may present ER or call 911 for help. Follow-Up Care: [facility] - Pulmonary No Smoking: If you smoke, Please STOP! Call for help.
--- NOTE | 2019-04-21 13:32 | DISCHARGE SUMMARY ---
Discharge Summary Admit Date: 04/18/19 Discharge Date: 04/21/19 Discharging Provider: Diego Mendez Primary Care Provider: Tadeo Hernandez Condition at Discharge: Poor Discharge Disposition: 01 Home, Self Care Discharge Facility Name: home - DIAGNOSES Admission Diagnoses: (1) Acute respiratory failure with hypoxia COPD exacerbation Pneumonia Narcotic dependence Chronic pain Osteoarthritis Spinal stenosis Tobacco dependence Caffeine dependence Chronic insomnia Obesity (BMI 30.0-34.9) Female bladder prolapse Ovarian cyst PTSD (post-traumatic stress disorder) Bipolar affective disorder Borderline personality disorder GERD (gastroesophageal reflux disease) History of thyroidectomy Hiatal hernia Discharge Diagnoses with Status of Each Condition: (1) Acute respiratory failure with hypoxia stable/improved. pt has 98% sat on 2.5 liter of O2. pt is prescribed Prednisone and antibiotics for her COPD and pneumonia. pt is ordered home O2. pt was ed ucated by RT for how to safely use home O2. COPD exacerbation stable/chronic. pt has 87% sat on room air, 94% sat on 1 liter of O2. pt has 85% sats on 1 liter of O2 on exertion, has 89% sat on 4 liter of O2 on exertion. I am ordering home oxygen O2 at 1 liter for rest, 4 liter of O2 for exertion. Pneumonia stable/improved. pt is prescribed Prednisone and antibiotics for her COPD and pneumonia. Narcotic dependence chronic/stable Chronic pain stable Osteoarthritis stable Spinal stenosis chronic/stable Tobacco dependence advise pt quit Caffeine dependence stable Chronic insomnia stable Obesity (BMI 30.0-34.9) stable, advise pt loss of weight Female bladder prolapse stable/chronic Ovarian cyst stable PTSD (post-traumatic stress disorder) Bipolar affective disorder Borderline personality disorder chronic/stable GERD (gastroesophageal reflux disease) chronic/stable History of thyroidectomy chronic/stable, normal TSH Hiatal hernia chronic/stable - HPI History of Present Illness: refer from Ms. Garcia's HPI on Carmel Schwarz is a 43-year old white female with a past medical history of COPD, pneumonia, tobacco dependence, narcotic dependence, chronic pain, spinal stenosis, osteoarthritis, chronic insomnia, obesity, bladder prolapse, kidney stones, ovarian cyst, PTSD, Bipolar affective disorder, Borderline personality disorder, suicide attempts, self-harm by cutting arms, GERD, status post thyroidectomy, hiatal hernia, and caffeine dependence. The patient was brought in by EMS with a 3-day history of progressive shortness of breath, cough, sore throat, runny nose and orthopnea, which started as an upper respiratory infection. She states that last night she had nausea, vomiting, and a low grade fever with chills. For her shortness of breath, she tried her albuterol nebuli zer with no relief, and admits to smoking 10-12 cigarettes daily despite her COPD. EMS reports they administered 125 mg IV solu-medrol, and continuous due- neb en route with some relief. Labs showed potassium 3.3, glucose 135, lactic acid 2.3 and calcium 8.1, without any other abnormalities. A urine was negative for infection, MUDDs screen normal for what she takes at home, influenza A&B negative, and HCg negative. Imaging shows left greater than right patchy opacities. Vital signs upon arrival were: temp 37.5 C, HR 123, B/P 158/107, RR 29, and the patient was 95% on room air. Upon my exam, the patient had doorway wheezing, no strider, and could only speak in 2-3 word sentences. She complained of abdominal pain from her vigorous coughing, increased flank pain, headaches, chest tightness, and was very worried about messing up her pain clinic agreement regarding her narcotics. Given her pneumonia, with COPD exacerbation, she has been admitted to inpatient. - HOSPITAL COURSE Hospital Course: pt was admitted for SOB, cough and wheezing. pt was found to have pneumonia and COPD exacerbation. pt was treated with IV of steroid, and IV of antibiotics for pneumonia. pt had breathing treatment in hospital. after treatment, pt's symptoms improved. pt also required home O2. Home O2 is arranged for pt by RT. pt was educated how to safely use home O2 oxygen. pt was highly recommended to quit cigarette smoking. pt was evaluated and treated by PT/OT. Home health PT was arranged for pt. pt request be d/c home on today. The detail hospital course is as the below. (1) Acute respiratory failure with hypoxia stable/improved. pt has 98% sat on 2.5 liter of O2. pt is prescribed Prednisone and antibiotics for her COPD and pneumonia. pt is ordered home O2. pt was educated by RT for how to safely use home O2. COPD exacerbation stable/chronic. pt has 87% sat on room air, 94% sat on 1 liter of O2. pt has 85% sats on 1 liter of O2 on exertion, has 89% sat on 4 liter of O2 on exertion. I am ordering home oxygen O2 at 1 liter for rest, 4 liter of O2 for exertion. Pneumonia stable/improved. pt is prescribed Prednisone and antibiotics for her COPD and pneumonia. Narcotic dependence chronic/stable Chronic pain stable Osteoarthritis stable Spinal stenosis chronic/stable Tobacco dependence advise pt quit Caffeine dependence stable Chronic insomnia stable Obesity (BMI 30.0-34.9) stable, advise pt loss of weight Female bladder prolapse stable/chronic Ovarian cyst stable PTSD (post-traumatic stress disorder) Bipolar affective disorder Borderline personality disorder chronic/stable GERD (gastroesophageal reflux disease) chronic/stable History of thyroidectomy chronic/stable, normal TSH Hiatal hernia chronic/stable - ALLERGIES Allergies/Adverse Reactions: Allergies Allergy/AdvReac Type Severity Reaction Status Date / Time Penicillins Allergy Unknown Verified 04/18/19 08:08 - MEDICATIONS Home Medications: Ambulatory Orders Medication Instructions Recorded Confirmed Albuterol Sulf [Ventolin Hfa 1 - 2 puffs INH Q4HR PRN #1 inhaler 05/25/17 04/19/19 Inhaler] Hydrocodone/Acetaminophen 1 tab PO Q8H PRN 04/19/19 04/19/19 [Hydrocodone-Acetamin 7.5-325] Loratadine [Allergy] 10 mg PO DAILY 04/19/19 04/19/19 Meloxicam 7.5 mg PO DAILY PRN 04/19/19 04/19/19 Mometasone/Formoterol [Dulera 100 2 inh PO DAILY 04/19/19 04/19/19 Mcg-5 Mcg Inhaler] Prazosin HCl 1 mg PO DAILY 04/19/19 04/19/19 Quetiapine Fumarate [Seroquel] 400 mg PO DAILY 04/19/19 04/19/19 Tizanidine HCl 4 mg PO TID PRN 04/19/19 04/19/19 Albuterol 1 inh INH Q4HR PRN 04/21/19 04/21/19 Tiotropium [place] [Spiriva] 1 inh PO DAILY 04/21/19 04/21/19 cefUROXime axetiL [Ceftin] 250 mg PO Q12H #10 tablet 04/21/19 predniSONE [Deltasone] 20 mg PO [id number] #21 tab 04/21/19 - PHYSICAL EXAM AT DISCHARGE General Appearance: positive: No acute distress, Alert. negative: Lethargic Eyes Bilateral: positive: Normal inspection, PERRL, EOMI, No lid inflammation ENT: positive: ENT inspection nml, Pharynx nml, No signs of dehydration. negative: Purulent nasal drainage Neck: positive: Nml inspection, Thyroid nml, No JVD, Trachea midline. negative: Thyromegaly, Lymphadenopathy (R), Lymphadenopathy (L), Stiff neck, Tracheal deviation Respiratory: positive: Chest non-tender, No respiratory distress, Wheezes, Other (pt report she has chronic wheezing sound on her chest) Cardiovascular: positive: Regular rate & rhythm, No murmur, No gallop. negative: Irregularly irregular, Extrasystoles, Tachycardia, Bradycardia, Systolic murmur, Diastolic murmur Peripheral Pulses: positive: 2+ Abdomen: positive: Non-tender, No organomegaly, Nml bowel sounds, No distention. negative: Tenderness, Guarding, Rebound Back: positive: Nml inspection. negative: CVA tenderness (R), CVA tenderness (L) Skin: positive: Color nml, No rash, Warm, Dry. negative: Cyanosis, Diaphoresis, Pallor Extremities: positive: Non-tender, Full ROM, Nml appearance. negative: Calf tenderness, Ibeth's sign/cords Neurologic/Psychiatric: positive: Oriented x3, Motor nml, Sensation nml, Mood/affect nml. negative: Weakness, Sensory loss, Facial droop, Slurred/abnml speech, Depressed mood/affect - LABS Result Diagrams: 04/21/19 05:00 04/21/19 05:00 - FOLLOW UP Follow Up: you are prescribed Prednisone and Ceftin antibiotics for your COPD and pneumonia. you may start your home meds as your schedule. you are prescribed home oxygen, please followup RT's instruction for safely using home oxygen. you are highly recommended to quit your cigarette smoking. You were evaluated and treated by PT/OT, home health PT is recommended for you. Please followup your pulomologist closely and followup pulmonary rehab. you may followup your PCP in one week, followup your toll lineman as out-pt. Should your symptoms returns or worsen, you may present ER or call 911 for help. - TIME SPENT Time Spent in Discharge (Minutes): 35
== END 2019-04-21 14:02 | disposition home health service (06) | DRG 189 ==
LOC: EDUNIT# → ED 07:55 → MS2 10:39 → UNDOADMIN 10:39 → MS2 10:40
PROVIDERS: ADMIT Nurse Practitioner; ATTEND Nurse Practitioner Gerontology
DX: J96.01 Acute respiratory failure with hypoxia (principal); J18.9 Pneumonia, unspecified organism; J44.1 Chronic obstructive pulmonary disease with (acute) exacerbation; F11.20 Opioid dependence, uncomplicated; F11.288 Opioid dependence with other opioid-induced disorder; F11.282 Opioid dependence with opioid-induced sleep disorder; J44.0 Chronic obstructive pulmonary disease with (acute) lower respiratory infection; G89.29 Other chronic pain; M19.90 Unspecified osteoarthritis, unspecified site; M48.02 Spinal stenosis, cervical region; F51.04 Psychophysiologic insomnia; E66.9 Obesity, unspecified; G47.30 Sleep apnea, unspecified; K21.9 Gastro-esophageal reflux disease without esophagitis; K44.9 Diaphragmatic hernia without obstruction or gangrene; F17.218 Nicotine dependence, cigarettes, with other nicotine-induced disorders; F11.24 Opioid dependence with opioid-induced mood disorder; F43.12 Post-traumatic stress disorder, chronic; F31.9 Bipolar disorder, unspecified; F60.3 Borderline personality disorder; F41.0 Panic disorder [episodic paroxysmal anxiety]; F20.9 Schizophrenia, unspecified; N81.10 Cystocele, unspecified; Z66 Do not resuscitate; Z79.899 Other long term (current) drug therapy; Z91.5 Personal history of self-harm; Z68.33 Body mass index [BMI] 33.0-33.9, adult; Z79.51 Long term (current) use of inhaled steroids; Z88.0 Allergy status to penicillin
CPT/HCPCS: 36415; 36600; 71045; 71275; 80048; 80053; 80306; 81003; 81025; 82803; 83036; 83605; 83690; 83735; 84443; 84484; 85025; 87040; 87275; 87276; 93005; 93306; 94640; 94761; 96361; 96365; 96375; 97116; 97161; 97165; 99284; 99285; A9270; J1650; J2060; J7626; Q9967; 81001; 87086

== ENCOUNTER 2019-07-25 08:55 | Outpatient (CLI) | payer MEDICAID ==
[2019-07-25 10:41] LABS: CALCIUM 8.2 mg/dL (8.5-10.3); CREATININE 0.5 mg/dL (0.4-1.0)
== END 2019-07-25 08:56 | disposition home or self-care (01) ==
LOC: LAB 08:55
PROVIDERS: ATTEND Obstetrics & Gynecology
DX: Z01.812 Encounter for preprocedural laboratory examination (principal); N84.0 Polyp of corpus uteri; Z20.828 Contact with and (suspected) exposure to other viral communicable diseases
CPT/HCPCS: 36415; 80048; 81599; 85025

== ENCOUNTER 2019-07-27 06:31 | Day surgery (SDC) | payer MEDICAID ==
[~2019-07-27 06:31] MED LIST changes: -ALBUTEROL NEB 2.5 MG/3 ML INH SCH; +CEFAZOLIN SODIUM IN 0.9 % NACL 2 GM/100 ML BAG IV ONE
[2019-07-27 06:51] LABS: HCG UR QUAL NEGATIVE
--- NOTE | 2019-07-27 06:53 | ANESTHESIA ---
Pre-Anesthesia VS, & Labs - Diagnosis endometrial polyp - Procedure myosure hysteroscopy, D&C polypectomy/myomectomy Height 5 ft 4 in Weight (kg) 97.5 kg Body Mass Index 33.7 - NPO >8 hours - Is Patient ?: No - Lab Results Lab results reviewed: Yes Home Medications and Allergies Home Medications: Ambulatory Orders Albuterol Sulf [Ventolin Hfa Inhaler] 2 puffs INH Q4HR PRN 07/25/19 Diclofenac Sodium [Diclo Gel] 1 each TP PRN PRN 07/25/19 Lidocaine 5 gm TP PRN PRN 07/25/19 predniSONE [Deltasone] 10 mg PO DAILY 07/25/19 Hydrocodone/Acetaminophen [Hydrocodone-Acetamin 7.5-325] 1 tab PO Q6H PRN 04/19/19 Loratadine [Allergy] 10 mg PO DAILY 04/19/19 Meloxicam 7.5 mg PO QPM PRN 04/19/19 Mometasone/Formoterol [Dulera 100 Mcg-5 Mcg Inhaler] 2 inh PO BID 04/19/19 Prazosin HCl 1 mg PO DAILY 04/19/19 Quetiapine Fumarate [Seroquel] 400 mg PO QPM 04/19/19 Tizanidine HCl 4 mg PO TID PRN 04/19/19 Albuterol 1 inh INH Q4HR PRN 04/21/19 Tiotropium [place] [Spiriva] 1 inh PO DAILY 04/21/19 Albuterol Sulf [Ventolin Hfa Inhaler] 2 puffs INH Q4HR PRN 07/25/19 Diclofenac Sodium [Diclo Gel] 1 each TP PRN PRN 07/25/19 Lidocaine 5 gm TP PRN PRN 07/25/19 predniSONE [Deltasone] 10 mg PO DAILY 07/25/19 Allergies/Adverse Reactions: Allergies Allergy/AdvReac Type Severity Reaction Status Date / Time Penicillins Allergy Anaphylaxis Verified 07/25/19 09:17 Anes History & Medical History - Anesthetic History Anesthesia Complications: reports: No previous complications Family history of Anesthesia Complications: Denies Family history of Malignant Hyperthermia: Denies - Medical History Cardiovascular: reports: Peripheral Vascular Disease, Murmur Pulmonary: reports: COPD, Pneumonia, Shortness of breath, Sleep apnea Gastrointestinal: reports: GERD, Ulcers, Hiatal hernia, Hemorrhoids Urinary: reports: Incontinence, Nocturia, Frequency, Kidney stones Neuro: reports: Headaches, Migraines, Peripheral neuropathy, Motion sickness Musculoskeletal: reports: Osteoarthritis, Fatigue, Chronic back pain Endocrine/Autoimmune: reports: None Blood Disorders: reports: None Skin: reports: None Smoking Status: Current every day smoker - Surgical History General: Colonoscopy Gynecologic: Tubal ligation Exam General: Alert, Oriented x3, Cooperative Dental: Poor dentition (several missing at bilat bottom, none loose per pt) Mouth Openin Fingerbreadth Neck Mobility: Normal Mallampati classification: II Thyromental Distance: 4-6 cm Respiratory: Lungs clear, Normal breath sounds, No respiratory distress, Other (dry cough, used albuterol prior to pre-op asessment) Cardiovascular: Regular rate Neurological: Normal speech Mental/Cognitive Status: Alert/Oriented X3, Normal for patient Cognitive Status: Within normal limits Plan Anesthesia Type: General Consent for Procedure(s) Verified and Reviewed: Yes Code Status: Attempt Resuscitation ASA classification: 2-Mild systemic disease Is this case an emergency?: No
[2019-07-27] MEDS ORDERED: LACTATED RINGERS 1,000 ML IV ONE ×2 (06:59→09:20)
[2019-07-27] MEDS ORDERED: SILVER NITRATE APPLICATOR TOP ONE (07:10)
[2019-07-27] MEDS ORDERED: LIDOCAINE 1%-EPI 1:100000 20 ML MDV ONE (07:11)
[2019-07-27] MEDS ORDERED: BUPIVACAINE 0.25% PF 30 ML VIAL ONE (07:11)
[2019-07-27 07:51] LABS: BASOPHILS # (AUTO) 0.1 10^3/uL (0.0-0.1); BASOPHILS % (AUTO) 0.6 %; EOSINOPHILS # (AUTO) 0.2 10^3/uL (0.0-0.7); EOSINOPHILS % (AUTO) 1.5 %; LYMPHOCYTES # (AUTO) 3.1 10^3/uL (1.5-3.5); LYMPHOCYTES % (AUTO) 24.6 %; MEAN CORPUSCULAR HEMOGLOBIN 31.4 pg (27.0-31.0); MEAN CORPUSCULAR HGB CONC 33.2 g/dL (32.0-36.0); MEAN CORPUSCULAR VOLUME 94.6 fL (81.0-99.0); MEAN PLATELET VOLUME 9.7 fL (7.9-10.8); MONOCYTES % (AUTO) 7.9 %; NEUTROPHILS # (AUTO) 8.2 10^3/uL (1.5-6.6); PLT - PLATELET COUNT 204 10^3/uL (130-450); RED BLOOD COUNT 4.46 10^6/uL (4.20-5.40); RED CELL DISTRIBUTION WIDTH 14.2 % (12.0-15.0); WHITE BLOOD COUNT 12.6 x10^3/uL (4.8-10.8)
[2019-07-27] MEDS ORDERED: KETOROLAC 30 MG/ML VIAL IVP ONE (08:26)
[2019-07-27] MEDS ORDERED: MIDAZOLAM 2 MG/2 ML VIAL IVP ONE (08:26)
[2019-07-27] MEDS ORDERED: LIDOCAINE-MPF 2% 5 ML VIAL IM ONE (08:26)
[2019-07-27] MEDS ORDERED: ONDANSETRON 4 MG/2 ML VIAL IVP ONE (08:26)
[2019-07-27] MEDS ORDERED: ROCURONIUM 50 MG/5 ML VIAL IVP ONE (08:26)
[2019-07-27] MEDS ORDERED: DEXAMETHASONE 4 MG/ML VIAL IVP ONE (08:26)
[2019-07-27] MEDS ORDERED: fentaNYL 100 MCG/2 ML VIAL IVP ONE (08:26)
[2019-07-27] MEDS ORDERED: PROPOFOL 200 MG/20 ML VIAL IVP ONE (08:26)
[2019-07-27] MEDS ORDERED: BUPIVACAINE 0.25% PF 30 ML VIAL SUBQ ONE (08:59)
[2019-07-27] MEDS ORDERED: SUGAMMADEX 200 MG/2 ML VIAL IVP ONE (09:11)
[2019-07-27] MEDS ORDERED: LORazepam 2 MG/ML VIAL IVP PRN (09:16)
[2019-07-27] MEDS ORDERED: oxyCODONE 5 MG TABLET PO PRN (09:16)
[2019-07-27] MEDS ORDERED: ONDANSETRON 4 MG/2 ML VIAL IVP PRN (09:16)
[2019-07-27] MEDS ORDERED: HYDROmorphone 0.5 MG/0.5 ML SYRINGE IVP PRN (09:16)
--- NOTE | 2019-07-27 09:20 | OPERATIVE REPORT ---
Operative Report - General Procedure Date: 07/27/19 Planned Procedure: Hysterscopy with Myosure Pre-Op Diagnosis: Menorrhagia, Endometrial polyp Procedure Performed: Hysterscopy with myosure Post Op Diagnosis: Menorrhagia with small endometrial polyp - Procedure Note Primary Surgeon: Kee Stringer MD Anesthesia Provider: Alonzo Easley CRNA Anesthesia Technique: General ET tube IV Fluids (mL): 1,000 Estimated Blood Loss (mL): 5 Urine Output (mL): 0 Indications: menorrhagia, endometrial polyp on US - Other Other Information/Narrative: [id number]
[2019-07-27] MEDS ORDERED: ONDANSETRON 4 MG/2 ML VIAL ONE (09:51)
--- NOTE | 2019-07-27 09:59 | OPERATIVE REPORT ---
DATE OF SERVICE: 07/27/2019 Physician: Kee Stringer MD PREOPERATIVE DIAGNOSES: Menorrhagia, suspected endometrial polyp. POSTOPERATIVE DIAGNOSES: Menorrhagia, minimal endometrial polyp. PROCEDURE PERFORMED: Hysteroscopy with MyoSure. SURGEON: Kee Stringer MD ANESTHESIA: MOOKIE Jorgensen ANESTHETIC: General via endotracheal tube. ESTIMATED BLOOD LOSS: Less than 5 mL INTRAVENOUS FLUIDS: 1000 mL, deficit on her irrigation was 330 mL. FINDINGS: Pelvic examination under anesthesia revealed a uterus, which was retroverted. It was roughly 8 cm. She had evidence of a large cystocele and rectocele at the same time. Upon introducing the hysteroscope, both chronic corners were visualized. There was minimal endometrial polyp, which was noted to be anterior portion of the lower uterine segment. Uterus sounded to 8 cm, retroverted. DESCRIPTION OF PROCEDURE: Following adequate endotracheal anesthesia, patient was placed in the dorsal lithotomy position in [facility]. Pelvic examination under anesthesia revealed the uterus was retroverted. The adnexa were not palpably enlarged. At this point, she was prepped and draped in the usual fashion. A time-out was performed, during which concerns were addressed. A speculum was placed in the vagina. The vaginal tissue was noted to be quite billowy with a large cystocele and rectocele. The cervix was grasped with a single-tooth tenaculum and then dilated up to size 7 mm. Uterus was then sounded to 8 cm in retroverted position. A video hysteroscope was placed. Both cornua were visualized. Upon careful inspection, there was the possibility of an anterior polyp noted in the lower uterine segment. The MyoSure was then introduced, and this polyp was resected, as well as good sampling of the remaining of the endometrial lining. At this point, the cornua were visualized bilaterally. There was no evidence of any further polyps or bleeding. The deficit was estimated at this time. The cervix was then released from the single-tooth tenaculum. Patient tolerated the procedure well and was taken to recovery in stable condition. Sponge and needle counts were correct. TD: 07/27/2019 09:36 [facility]
[2019-07-27] MEDS ORDERED: oxyCODONE 5 MG TABLET ONE (10:12)
[2019-07-27 10:30] VITALS: BP 140/81
== END 2019-07-27 06:32 | disposition home or self-care (01) ==
LOC: SDS 06:31
PROVIDERS: ATTEND Obstetrics & Gynecology
PROC: 0UDB8ZZ Extraction of Endometrium, Via Natural or Artificial Opening Endoscopic (ICD-10-PCS; 2019-07-27)
PROC: 0UB98ZZ Excision of Uterus, Via Natural or Artificial Opening Endoscopic (ICD-10-PCS; principal; 2019-07-27 07:30)
DX: N92.0 Excessive and frequent menstruation with regular cycle (principal); N84.0 Polyp of corpus uteri; N81.10 Cystocele, unspecified; N81.6 Rectocele; N85.4 Malposition of uterus; J44.9 Chronic obstructive pulmonary disease, unspecified; G47.30 Sleep apnea, unspecified; F17.210 Nicotine dependence, cigarettes, uncomplicated
CPT/HCPCS: 58558; 81025; 85025; 86850; 86900; 86901; A9270; J0690; J7120

== ENCOUNTER 2019-09-30 20:49 | Emergency (ER) | payer MEDICAID ==
--- NOTE | 2019-09-30 21:37 | ED Physician Documentation ---
History of Present Illness - Stated complaint Stated Complaint: SOA, CONGESTION, PX - Chief complaint Chief Complaint: Resp - History obtained from History obtained from: Patient - Additonal information Additional information: Patient is a 43-year-old female who is a daily smoker with a known history of COPD presents with worsening productive cough and also some diffuse rib discomfort without syncope. She denies any history of pulmonary embolism or DVT or ME. Reports she is currently on some sort of antibiotics as well as daily prednisone. Review of Systems Constitutional: reports: Reviewed and negative Eyes: reports: Reviewed and negative Ears: reports: Reviewed and negative Nose: reports: Reviewed and negative Throat: reports: Reviewed and negative Cardiac: reports: Reviewed and negative Respiratory: reports: Dyspnea, Cough GI: reports: Reviewed and negative : reports: Reviewed and negative Skin: reports: Reviewed and negative Musculoskeletal: reports: Reviewed and negative Neurologic: reports: Reviewed and negative Psychiatric: reports: Reviewed and negative Endocrine: reports: Reviewed and negative Immunocompromised: reports: Reviewed and negative PD PAST MEDICAL HISTORY - Past Medical History Past Medical History: Yes Cardiovascular: Peripheral Vascular Disease, Murmur Respiratory: COPD, Pneumonia, Shortness of breath, Sleep apnea Neuro: Headaches, Migraines, Peripheral neuropathy, Motion sickness Endocrine/Autoimmune: None GI: GERD, Ulcers, Hiatal hernia, Hemorrhoids 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: Ovarian cysts : Incontinence, Nocturia, Frequency, Kidney stones HEENT: Chronic vision loss, Chronic sinusitis, Chronic hearing loss Psych: Depression, Anxiety, Bipolar disorder, Schizophrenia, Panic attacks, Post traumatic stress disorder, Other Musculoskeletal: Osteoarthritis, Fatigue, Chronic back pain Derm: None - Past Surgical History Past Surgical History: Yes 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: 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: Tubal ligation - Present Medications Home Medications: Ambulatory Orders Medication Instructions Recorded Confirmed Hydrocodone/Acetaminophen 1 tab PO Q6H PRN 04/19/19 07/27/19 [Hydrocodone-Acetamin 7.5-325] Loratadine [Allergy] 10 mg PO DAILY 04/19/19 07/27/19 Meloxicam 7.5 mg PO QPM PRN 04/19/19 07/27/19 Mometasone/Formoterol [Dulera 100 2 inh PO BID 04/19/19 07/27/19 Mcg-5 Mcg Inhaler] Prazosin HCl 1 mg PO DAILY 04/19/19 07/27/19 Quetiapine Fumarate [Seroquel] 400 mg PO QPM 04/19/19 07/27/19 Tizanidine HCl 4 mg PO TID PRN 04/19/19 07/27/19 Albuterol 1 inh INH Q4HR PRN 04/21/19 07/27/19 Tiotropium [place] [Spiriva] 1 inh PO DAILY 04/21/19 07/27/19 Albuterol Sulf [Ventolin Hfa 2 puffs INH Q4HR PRN 07/25/19 07/27/19 Inhaler] Diclofenac Sodium [Diclo Gel] 1 each TP PRN PRN 07/25/19 07/27/19 Lidocaine 5 gm TP PRN PRN 07/25/19 07/25/19 predniSONE [Deltasone] 10 mg PO DAILY 07/25/19 07/27/19 - Allergies Allergies/Adverse Reactions: Allergies Allergy/AdvReac Type Severity Reaction Status Date / Time Penicillins Allergy Anaphylaxis Verified 09/30/19 20:56 - Social History Does the pt smoke?: Yes Smoking Status: Current every day smoker Does the pt drink ETOH?: Yes Does the pt have substance abuse?: No - Immunizations Immunizations are current?: Yes - POLST Patient has POLST: No POLST Status: DNR PD ED PE NORMAL - Vitals Vital signs reviewed: Yes - General General: Alert and oriented X 3, No acute distress, Well developed/nourished - HEENT HEENT: PERRL, Moist mucous membranes - Neck Neck: Supple, no meningeal sign, Thyroid normal, No JVD - Cardiac Cardiac: RRR, No murmur, Strong equal pulses - Respiratory Respiratory: Other (Trachea is midline there is no respiratory distress. 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, No motor deficit, No sensory deficit, Normal speech - Psych Psych: Normal mood, Normal affect Results - Vitals Vitals: Vital Signs - 24 hr 09/30/19 09/30/19 09/30/19 20:52 21:09 21:11 Temperature 36.5 C 37.2 C Heart Rate 106 H 98 Respiratory 28 H 18 Rate Blood Pressure 155/96 H 150/98 H O2 Saturation 93 97 97 09/30/19 09/30/19 09/30/19 21:30 22:03 22:22 Temperature Heart Rate 85 85 99 Respiratory 18 23 20 Rate Blood Pressure 143/99 H 157/103 H O2 Saturation 99 98 09/30/19 09/30/19 23:00 23:39 Temperature Heart Rate 89 87 Respiratory 25 H 22 Rate Blood Pressure 132/84 H 145/87 H O2 Saturation 92 93 Oxygen O2 Source Room air Oxygen Flow Rate 2 - EKG (time done) 22:05 Rate: Other (no stemi) - Labs Labs: Laboratory Tests 09/30/19 09/30/19 09/30/19 21:40 21:40 22:13 WBC 15.6 H RBC 4.79 Hgb 15.3 Hct 45.6 MCV 95.2 MCH 31.9 H MCHC 33.6 RDW 14.1 Plt Count 216 MPV 9.8 Neut # (Auto) 12.5 H Lymph # (Auto) 1.9 [place] # (Auto) 1.0 Eos # (Auto) 0.0 Baso # (Auto) 0.1 Absolute Nucleated RBC 0.00 Nucleated RBC % 0.0 PT 10.9 INR 1.0 APTT 25.0 Sodium 142 Potassium 4.1 Chloride 99 L Carbon Dioxide 31 Anion Gap 12.0 BUN 18 Creatinine 0.7 Estimated GFR (MDRD) 90 Glucose 106 H Lactic Acid Calcium 9.1 Total Bilirubin 0.5 AST 20 ALT 38 Alkaline Phosphatase 60 Total Creatine Kinase 55 Troponin I High Sens B-Natriuretic Peptide Total Protein 6.9 Albumin 4.0 Globulin 2.9 Albumin/Globulin Ratio 1.4 Lipase 23 09/30/19 09/30/19 09/30/19 22:13 22:13 22:13 WBC RBC Hgb Hct MCV MCH MCHC RDW Plt Count MPV Neut # (Auto) Lymph # (Auto) [place] # (Auto) Eos # (Auto) Baso # (Auto) Absolute Nucleated RBC Nucleated RBC % PT INR APTT Sodium Potassium Chloride Carbon Dioxide Anion Gap BUN Creatinine Estimated GFR (MDRD) Glucose Lactic Acid 0.9 Calcium Total Bilirubin AST ALT Alkaline Phosphatase Total Creatine Kinase Troponin I High Sens 6.0 B-Natriuretic Peptide 94 Total Protein Albumin Globulin Albumin/Globulin Ratio Lipase PD MEDICAL DECISION MAKING - ED course Complexity details: reviewed results, re-evaluated patient, d/w patient, d/w family, other ED course: Patient's chest x-ray, EKG, troponin are unremarkable. She is 98% oxygen saturation on room air, and 95% on room air while ambulating. She is in no respiratory distress she was treated with an albuterol MDI. As an outpatient she is currently on antibiotics and steroids her work-up today shows no emergent indication for inpatient admission. She has good follow-up with her medical provider on Thursday.Overall her presentation to include history physical and testing is consistent with Chronic bronchitis Associated with COPD.. Departure - Departure Disposition: 01 Home, Self Care Clinical Impression: Moderate COPD (chronic obstructive pulmonary disease) Condition: Stable Instructions: COPD Dc Follow-Up: your, doctor [Other] - Tomorrow Comments: continue to take your medications as directed by your physician. Discharge Date/Time: 09/30/19 23:40
[2019-09-30] MEDS ORDERED: ALBUTEROL 1 PUFF INH STA (22:00)
[2019-09-30 22:06] LABS: BASOPHILS # (AUTO) 0.1 10^3/uL (0.0-0.1); BASOPHILS % (AUTO) 0.3 %; EOSINOPHILS % (AUTO) 0.2 %; HGB - HEMOGLOBIN 15.3 g/dL (12.0-16.0); LYMPHOCYTES # (AUTO) 1.9 10^3/uL (1.5-3.5); LYMPHOCYTES % (AUTO) 11.9 %; MEAN CORPUSCULAR HEMOGLOBIN 31.9 pg (27.0-31.0); MEAN CORPUSCULAR HGB CONC 33.6 g/dL (32.0-36.0); MEAN CORPUSCULAR VOLUME 95.2 fL (81.0-99.0); MEAN PLATELET VOLUME 9.8 fL (7.9-10.8); MONOCYTES % (AUTO) 6.4 %; NEUTROPHILS # (AUTO) 12.5 10^3/uL (1.5-6.6); NEUTROPHILS % (AUTO) 80.4 %; PLT - PLATELET COUNT 216 10^3/uL (130-450); RED BLOOD COUNT 4.79 10^6/uL (4.20-5.40); RED CELL DISTRIBUTION WIDTH 14.1 % (12.0-15.0); WHITE BLOOD COUNT 15.6 x10^3/uL (4.8-10.8)
[2019-09-30 22:12] LABS: PT - PROTHROMBIN TIME 10.9 secs (9.9-12.6)
[2019-09-30 22:35] LABS: ALBUMIN/GLOBULIN RATIO 1.4 (1.0-2.2); BILIRUBIN,TOTAL 0.5 mg/dL (0.2-1.0); CALCIUM 9.1 mg/dL (8.5-10.3); CREATININE 0.7 mg/dL (0.4-1.0); TOTAL PROTEIN 6.9 g/dL (6.7-8.2)
[2019-09-30 23:40] VITALS: BP 145/87
--- NOTE | 2019-10-01 10:53 | XRAY Report ---
PROCEDURE: Chest 1 View X-Ray INDICATIONS: cp sob TECHNIQUE: One view of the chest was acquired. COMPARISON: 04/19/2019 FINDINGS: Surgical changes and devices: None. Lungs and pleura: No pleural effusions or pneumothorax. Lungs are clear. Mediastinum: Mediastinal contours appear normal. Heart size is normal. Bones and chest wall: No suspicious bony lesions. Overlying soft tissues appear unremarkable. IMPRESSION: No evidence acute pulmonary process. Reviewed by: Bernardo Toledo MD on 10/01/2019 10:51 AM PDT Approved by: Bernardo Toledo MD on 10/01/2019 10:51 AM PDT Station ID: [id number]
== END 2019-09-30 23:40 | disposition home or self-care (01) ==
LOC: ED 20:49
DX: J44.9 Chronic obstructive pulmonary disease, unspecified (principal); F17.200 Nicotine dependence, unspecified, uncomplicated
CPT/HCPCS: 36415; 71045; 80053; 82550; 83605; 83690; 83880; 84484; 85025; 85610; 85730; 87040; 93005; 94640; 94664; 99284; 99285

== ENCOUNTER 2019-10-12 06:29 | Day surgery (SDC) | payer MEDICAID ==
[2019-10-12] MEDS ORDERED: SUGAMMADEX 200 MG/2 ML VIAL IVP ONE (06:30)
[2019-10-12] MEDS ORDERED: PHENYLEPHRINE 10 MG/ML VIAL IV ONE (06:30)
[2019-10-12] MEDS ORDERED: ROCURONIUM 50 MG/5 ML VIAL IVP ONE (06:30)
[2019-10-12] MEDS ORDERED: PROPOFOL 200 MG/20 ML VIAL IVP ONE (06:30)
[2019-10-12] MEDS ORDERED: KETAMINE 500 MG/10 ML VIAL IVP ONE (06:30)
[2019-10-12] MEDS ORDERED: HYDROCORTISONE SUCCINATE 100 MG/2 ML VIAL IVP ONE (06:30)
[2019-10-12] MEDS ORDERED: LACTATED RINGERS 1,000 ML IV ONE ×4 (06:47→12:33)
[2019-10-12 06:58] LABS: HCG UR QUAL NEGATIVE
[2019-10-12] MEDS ORDERED: BUPIVACAINE 0.5% PF 30 ML VIAL ONE ×2 (07:08→10:45)
[2019-10-12] MEDS ORDERED: LIDOCAINE 1%-EPI 1:100000 20 ML MDV ONE ×2 (07:08→10:45)
[2019-10-12] MEDS ORDERED: ESTROGENS, CONJUGATED CREAM 30 GM TUBE ONE (07:08)
[2019-10-12] MEDS ORDERED: METHYLENE BLUE 0.5% 50 MG/10 ML AMPULE ONE (07:16)
[2019-10-12] MEDS ORDERED: IPRATROPIUM/ALBUTEROL 3 ML NEB INH PRN (07:18)
--- NOTE | 2019-10-12 07:30 | ANESTHESIA ---
Pre-Anesthesia VS, & Labs - Diagnosis Uterine prolapse, stress urinary incontinence, cystocele, rectocele - Procedure LAVH, Ant/Post Repair, Colporoscopy Vital Signs: Temp Pulse Resp BP Pulse Ox 36.8 C 91 22 178/88 H 96 10/12/19 06:49 10/12/19 06:49 10/12/19 06:49 10/12/19 06:49 10/12/19 06:49 Height 5 ft 4 in Weight (kg) 103.6 kg Body Mass Index 39.4 - NPO >8 hours - Is Patient ?: No - Lab Results Lab results reviewed: Yes Home Medications and Allergies Home Medications: Ambulatory Orders Docusate Sodium 100 mg PO BID 10/05/19 Active Medications Albuterol/Ipratropium (Duoneb) 3 ml INH Q4HR PRN PRN Reason: Wheezing Hydrocodone/Acetaminophen [Hydrocodone-Acetamin 7.5-325] 1 tab PO Q6H PRN 04/19/19 Loratadine [Allergy] 10 mg PO DAILY 04/19/19 Meloxicam 7.5 mg PO QPM PRN 04/19/19 Mometasone/Formoterol [Dulera 100 Mcg-5 Mcg Inhaler] 2 inh PO BID 04/19/19 Prazosin HCl 1 mg PO DAILY 04/19/19 Quetiapine Fumarate [Seroquel] 400 mg PO QPM 04/19/19 Tizanidine HCl 4 mg PO TID PRN 04/19/19 Albuterol 1 inh INH Q4HR PRN 04/21/19 Tiotropium [place] [Spiriva] 1 inh PO DAILY 04/21/19 Albuterol Sulf [Ventolin Hfa Inhaler] 2 puffs INH Q4HR PRN 07/25/19 Diclofenac Sodium [Diclo Gel] 1 each TP PRN PRN 07/25/19 Lidocaine 5 gm TP PRN PRN 07/25/19 predniSONE [Deltasone] 10 mg PO DAILY 07/25/19 Docusate Sodium 100 mg PO BID 10/05/19 Allergies/Adverse Reactions: Allergies Allergy/AdvReac Type Severity Reaction Status Date / Time Penicillins Allergy Anaphylaxis Verified 09/30/19 20:56 Anes History & Medical History - Anesthetic History Anesthesia Complications: reports: No previous complications Family history of Anesthesia Complications: Denies Family history of Malignant Hyperthermia: Denies - Medical History Cardiovascular: reports: Peripheral Vascular Disease, Murmur Pulmonary: reports: COPD, Pneumonia, Shortness of breath, Sleep apnea Gastrointestinal: reports: GERD, Ulcers, Hiatal hernia, Hemorrhoids Urinary: reports: Incontinence, Nocturia, Frequency, Kidney stones Neuro: reports: Headaches, Migraines, Peripheral neuropathy, Motion sickness Musculoskeletal: reports: Osteoarthritis, Fatigue, Chronic back pain Endocrine/Autoimmune: reports: None Blood Disorders: reports: None Skin: reports: None Smoking Status: Current every day smoker - Surgical History General: Colonoscopy Gynecologic: Tubal ligation Results - Pulmonary Function Test Pulmonary Function Test: Report reviewed (cleared by Pulmonary MD, FEV1 44%) - Echo Results Echo Results: Report reviewed (Echo 60-65%, No valvular abnormalities) Exam General: Alert, Oriented x3, Cooperative, No acute distress Dental: WNL Mouth Openin Fingerbreadth Neck Mobility: Normal Mallampati classification: II Respiratory: Lungs clear, Normal breath sounds, No respiratory distress, No accessory muscle use Cardiovascular: Regular rate, Normal S1, Normal S2, No murmurs Plan Anesthesia Type: General Consent for Procedure(s) Verified and Reviewed: Yes Code Status: Attempt Resuscitation ASA classification: 4-Incapacitating disease Is this case an emergency?: No
[2019-10-12] MEDS ORDERED: NALOXONE 0.4 MG/ML VIAL IVP PRN (07:33)
[2019-10-12] MEDS ORDERED: HYDROmorphone 0.5 MG/0.5 ML SYRINGE IVP PRN (07:33)
[2019-10-12] MEDS ORDERED: ONDANSETRON 4 MG/2 ML VIAL IVP PRN ×2 (07:33→12:58)
[2019-10-12] MEDS ORDERED: fentaNYL 100 MCG/2 ML VIAL IVP PRN (07:33)
[2019-10-12] MEDS ORDERED: MORPHINE 2 MG/ML CARPUJECT IVP PRN (07:33)
[2019-10-12] MEDS ORDERED: METOCLOPRAMIDE 10 MG/2 ML VIAL IVP PRN (07:33)
[2019-10-12] MEDS ORDERED: ePHEDrine 50 MG/ML VIAL IVP PRN (07:33)
[2019-10-12] MEDS ORDERED: ATROPINE ABBOJECT 1 MG/10 ML SYRINGE IVP PRN (07:33)
[2019-10-12] MEDS ORDERED: CLINDAMYCIN 600 MG/50 ML 50 ML IV ONE (07:40)
[2019-10-12] MEDS ORDERED: IPRATROPIUM/ALBUTEROL 3 ML NEB INH ONE (07:43)
[2019-10-12] MEDS ORDERED: GABAPENTIN 400 MG CAPSULE ONE (07:51)
[2019-10-12] MEDS ORDERED: ACETAMINOPHEN 1,000 MG/100 ML 100 ML IV ONE (07:51)
[2019-10-12] MEDS ORDERED: CELECOXIB 100 MG CAPSULE PO ONE (07:52)
[2019-10-12] MEDS ORDERED: GENTAMICIN 370 MG in SODIUM CHLORIDE 0.9% 100ML 100 ML IV SCH (08:00)
[2019-10-12] MEDS ORDERED: LACTATED RINGERS 1,000 ML IV SCH (08:00)
[2019-10-12] MEDS ORDERED: BUPIVACAINE 0.5% PF 30 ML VIAL INFIL ONE ×3 (09:31)
[2019-10-12] MEDS ORDERED: LIDOCAINE 1%-EPI 1:100000 20 ML MDV SUBQ ONE ×3 (09:32)
[2019-10-12] MEDS ORDERED: ESTROGENS, CONJUGATED CREAM 30 GM TUBE VG ONE (12:15)
[2019-10-12] MEDS ORDERED: LORazepam 2 MG/ML VIAL IVP PRN (12:58)
[2019-10-12] MEDS ORDERED: ALBUTEROL SULF 0.5% 20ML SOLUTION INH PRN (13:05)
[2019-10-12] MEDS ORDERED: HYDROmorphone 0.5 MG/0.5 ML SYRINGE ONE (13:07)
[2019-10-12] MEDS ORDERED: fentaNYL 100 MCG/2 ML VIAL ONE (13:09)
--- NOTE | 2019-10-12 13:19 | OPERATIVE REPORT ---
Operative Report - General Procedure Date: 10/12/19 Planned Procedure: LAVH, BS, A&P, Cysto Pre-Op Diagnosis: Uterine Prolasps Cystocele, Rectocele. left ovarian cyst Procedure Performed: LAVH BS A&P Cysto - Procedure Note Primary Surgeon: Kee Stringer MD Secondary Surgeon: Leticia Mccoy MD Anesthesia Provider: Samir Rosas CRNA Anesthesia Technique: General ET tube Pathology: Uterus and tubes. left ovarian cyst fluid Estimated Blood Loss (mL): 100 Complications: None
--- NOTE | 2019-10-12 13:49 | ANESTHESIA POST OP EVALUATION ---
Anesthesia Post Eval - Post Anesthesia Eval Vitals: Last Vital Signs Temp 36.4 C L 10/12/19 13:20 Pulse 94 10/12/19 13:35 Resp 18 10/12/19 13:35 BP 115/69 10/12/19 13:35 Pulse Ox 94 10/12/19 13:20 CV Function Including HR & BP: positive: Stable Pain Control: positive: Satisfactory Nausea & Vomiting: positive: Negative Mental Status: positive: Patient Participates Respiratory Status: Airway Patent Hydration Status: Satisfactory Anesthesia Complications: positive: None
[2019-10-12] MEDS ORDERED: ALBUTEROL NEB 2.5 MG/3 ML INH PRN (14:03)
[2019-10-12] MEDS: oxyCODONE 5 MG TABLET PO PRN ×3 (14:38→23:40)
[2019-10-12] MEDS ORDERED: ACETAMINOPHEN 500 MG TABLET PO SCH (15:00)
[2019-10-12] MEDS: ENOXAPARIN 40 MG/0.4 ML SYRINGE SUBQ SCH (15:22)
[2019-10-12] MEDS: ACETAMINOPHEN 500 MG TABLET PO SCH ×2 (15:22→20:46)
--- NOTE | 2019-10-12 16:10 | OPERATIVE REPORT ---
DATE OF SERVICE: 10/12/2019 Physician: Kee Stringer MD DATE OF PROCEDURE 10/12/2019. PREOPERATIVE DIAGNOSES Uterine prolapse, rectocele, rectal splinting, stress urinary incontinence, and left ovarian cyst. POSTOPERATIVE DIAGNOSES Uterine prolapse, rectocele, rectal splinting, stress urinary incontinence, and left ovarian cyst. PROCEDURES PERFORMED Laparoscopically-assisted vaginal hysterectomy with drainage of left ovarian cyst, bilateral salpingectomy, and anterior-posterior repair as well as cystoscopy. SURGEON Kee Stringer MD. ICE SKATING COACH Leticia Mccoy MD. ANESTHESIA General via endotracheal tube; Samir Rosas CRNA. ESTIMATED BLOOD LOSS 100 mL. FINDINGS Upon entering the abdominal cavity the liver appeared to show evidence of fatty infiltration. The gallbladder was without inflammation. The appendix also appeared to be free of any inflammation. There was copious amounts of redundant adipose tissue from the omentum. Adequate visualization; however, was able to be achieved. DESCRIPTION OF PROCEDURE Following adequate general endotracheal anesthesia, the patient was placed in the dorsal lithotomy position in [facility]. At this point, pelvic examination was performed, at which time there was evidence of a large cystocele and rectocele. The cervix was small and easily came down. At this point, she was prepped and draped in the usual fashion. A Araujo catheter was then placed under sterile conditions. A speculum was placed in the vagina. The cervix was visualized, grasped with a single-tooth tenaculum. At this point, the uterus was dilated to 8 mm, sounded to 9 mm and a shipping weigher cervical manipulator with a 3 cm ring was placed easily. The intrauterine ring was inflated as well as the vaginal ring. The manipulator was then placed in the device to hold it. At this point, the carton making machine operator's gloves were changed. A stab wound was made in the subumbilical region following local anesthesia with 0.5% Marcaine with epinephrine. The skin was incised vertically with a #15 blade and then the 5 mm trocar, which was 15 cm in length was placed without difficulty. There was no evidence of any injury at the site of insertion. Two additional ports were placed, both in the lower quadrants, both in the right and left sides of the abdomen. The pelvis was inspected. The liver was inspected. There was no evidence of any injury at the site of insertion. The patient was then placed in Trendelenburg. At this point, the left ovarian cyst was identified, and then drained with a needle, 17 mL of straw-colored fluid was removed. The right fallopian tube was then grasped and then utilizing a LigaSure was transected and cauterized. Then, the cornual area was also cauterized and transected. The utero-ovarian ligament was cauterized and transected with the LigaSure. Following this, the round ligament was also cauterized and transected. The anterior leaf of the broad ligament was opened and then this was carried down to and across the uterus at the level of the internal os of the cervix. Care was taken to avoid any injury to the bladder. The posterior leaf was also cauterized, but not transected at this time. Care was taken to try and minimize any blood loss with the uterine vessels. The left side was treated in identical fashion. The fallopian tube was grasped and the mesosalpinx was cauterized and transected with LigaSure. The proximal portion of the fallopian tube was cauterized and transected. Then, the round ligament was cauterized and transected with the LigaSure. Following this, the utero- ovarian ligament was cauterized and transected. The anterior leaf of the broad ligament was then opened and carried down to the bladder flap. This was cauterized and transected utilizing the LigaSure, the posterior leaf was also cauterized and transected. The uterine vessels were visualized on the left hand side, these were doubly cauterized and transected. The ring, which was in the vagina, was able to be palpated with the instruments. The parametrium on the left hand side was carried lateral to expose the shipping weigher ring more clearly. At this point, the righthand side was treated in an identical fashion. The uterine vessels were cauterized and transected. The bladder flap was pushed well back to expose the ring of the shipping weigher. Then, utilizing a Harmonic scalpel the uterus was amputated from the apex of the vagina. Care was taken to avoid any injury to the bowel or any the other adjacent structures. The uterus was then brought through the vagina and out. An Asepto bulb was then used to block the vagina to maintain a pneumoperitoneum. The pelvis was inspected, there was no evidence of any bleeding at this time. At this point, attention was changed to the vagina. A medium weighted speculum was placed in the posterior vaginal area. the cuff was grasped with Allis clamps both superiorly and inferiorly. At this point, the transverse cervical ligaments were ligated utilizing 0 Vicryl in a Rodolfo stitch fashion. A La suture was then placed, which went to the posterior vagina. The left transverse cervical ligament traversed high across the cul-de-sac, including the right transverse cervical ligament and then apex of the vagina. These were tagged and left to be tied later. The apex of the vagina had 2 additional sutures of 0 Vicryl placed at the apex. At this point, an Allis forceps was placed roughly 2 cm from the urethral meatus. Then the area was infiltrated with 0.5% Marcaine with epinephrine to hydrodissect the vaginal mucosa from the bladder. Metzenbaums were then used to tunnel underneath the anterior vaginal mucosa. this was divided and then Allis-Costilla clamps were placed on the edge, the bladder was then pushed back from the vaginal mucosa. At this point, 3 simple sutures of 0 Vicryl placed to reapproximate the vesicovaginal fascia. This appeared to reduce the cystocele quite well. At this point, the vaginal mucosa was trimmed and then closed utilizing [id number] of 2-0 Vicryl. The apex of the vagina was then also closed utilizing [id number] of 2-0 Vicryl. Attention was then turned to the posterior vagina. A triangular piece of perineum was cut utilizing a #15 blade. The edges of the hymenal ring were grasped with Allis forceps. Then 0.5% Marcaine with epinephrine was used to hydrodissect the posterior vaginal mucosa from the rectum. At this point, the rectum was pushed back from the vaginal mucosa. This was done all the way to the apex of the vagina. Then, 5 sutures of 0 Vicryl were placed to rebuild the rectovaginal fascia. There was evidence of good support at this time. The excess vaginal mucosa was trimmed with Metzenbaums and then closed utilizing [id number] of 2-0 Vicryl, this was carried all the way to the perineum. The perineum was then repaired. At this point, a finger was placed in the rectum and there was no evidence of any stitches. There was evidence of good repair of the vessels of the rectovaginal fascia. The carton making machine operator's gloves were changed and following this, the laparoscope was reintroduced and there was evidence of no bleeding from the apex of the vagina. The abdominal ports were removed and then these were closed utilizing 4-0 Monocryl subcuticular with Dermabond. Cystoscopy was performed, at which time, the entire bladder mucosa was visualized. There was no evidence of any sutures. There was evidence of good efflux of urine through both ureters. The patient tolerated the procedure well and was taken to recovery in stable condition. Sponge and needle counts were correct. Thruout the entire procedure Dr Mccoy was instrumental with retraction, placement of trochars and use with the Ligasure. TD: 10/12/2019 13:36 RACHEL
[2019-10-12] MEDS: HYDROmorphone 0.5 MG/0.5 ML SYRINGE IVP PRN ×2 (16:43→21:08)
[2019-10-12] MEDS: BUDESONIDE 0.5 MG/2 ML NEB INH SCH (19:56)
[2019-10-12] MEDS: FORMOTEROL FUMARATE NEB 20 MCG/2 ML INH SCH (19:56)
[2019-10-12] MEDS: ALBUTEROL NEB 2.5 MG/3 ML INH PRN (20:30)
[2019-10-12] MEDS: DOCUSATE SODIUM 100 MG CAPSULE PO SCH (20:46)
[2019-10-12] MEDS ORDERED: traZODone 50 MG TABLET PO SCH (21:00)
[2019-10-13] MEDS: HYDROmorphone 0.5 MG/0.5 ML SYRINGE IVP PRN ×2 (00:12→02:06)
[2019-10-13] MEDS: ACETAMINOPHEN 500 MG TABLET PO SCH ×2 (04:48→11:52)
[2019-10-13] MEDS: oxyCODONE 5 MG TABLET PO PRN ×2 (07:27→11:08)
[2019-10-13] MEDS: ALBUTEROL NEB 2.5 MG/3 ML INH PRN (07:41)
[2019-10-13] MEDS: FORMOTEROL FUMARATE NEB 20 MCG/2 ML INH SCH (07:41)
[2019-10-13] MEDS: BUDESONIDE 0.5 MG/2 ML NEB INH SCH (07:41)
[2019-10-13] MEDS: ENOXAPARIN 40 MG/0.4 ML SYRINGE SUBQ SCH (08:43)
[2019-10-13] MEDS: DOCUSATE SODIUM 100 MG CAPSULE PO SCH (08:51)
[2019-10-13] MEDS ORDERED: NICOTINE 21 MG PATCH TOP SCH (09:00)
[2019-10-13] MEDS ORDERED: NON FORMULARY MED PO SCH (09:00)
[2019-10-13 11:20] VITALS: BP 133/77
== END 2019-10-13 12:10 | disposition home or self-care (01) ==
LOC: SDS 06:29 → MS2 13:13 → SDS 10-13 12:10
PROVIDERS: ATTEND Obstetrics & Gynecology
PROC: 0UT9FZZ Resection of Uterus, Via Natural or Artificial Opening With Percutaneous Endoscopic Assistance (ICD-10-PCS; principal; 2019-10-12 07:30)
DX: N81.4 Uterovaginal prolapse, unspecified (principal); N39.3 Stress incontinence (female) (male); N83.202 Unspecified ovarian cyst, left side; E66.9 Obesity, unspecified; Z68.39 Body mass index [BMI] 39.0-39.9, adult; R15.9 Full incontinence of feces; J44.9 Chronic obstructive pulmonary disease, unspecified; G47.33 Obstructive sleep apnea (adult) (pediatric); K21.9 Gastro-esophageal reflux disease without esophagitis; E07.9 Disorder of thyroid, unspecified; F17.210 Nicotine dependence, cigarettes, uncomplicated; F31.9 Bipolar disorder, unspecified; F60.3 Borderline personality disorder; F41.9 Anxiety disorder, unspecified; F43.10 Post-traumatic stress disorder, unspecified; Z79.51 Long term (current) use of inhaled steroids; Z79.52 Long term (current) use of systemic steroids; G89.29 Other chronic pain; M54.9 Dorsalgia, unspecified
CPT/HCPCS: 57260; 58552; 81025; 86850; 86900; 86901; 94640; A9270; J0131; J1170; J1650; J7120; J7609; J7626

== ENCOUNTER 2019-10-16 11:21 | Emergency (ER) | payer MEDICAID ==
--- NOTE | 2019-10-16 12:12 | ED Physician Documentation ---
History of Present Illness - Stated complaint Stated Complaint: SWELLING FACE - Chief complaint Chief Complaint: Resp - History obtained from History obtained from: Patient - Additonal information Additional information: Postop day 4 from a hysterectomy. Reportedly was in Trendelenburg for several hours. Since the surgery she feels like her face is puffy. When she called the on-call surgeon today she was referred here for further evaluation and treatment. She denies shortness of breath more than normal, urinary complaints, pedal edema. Review of Systems Constitutional: denies: Fever, Chills Cardiac: denies: Chest pain / pressure, Palpitations Respiratory: denies: Dyspnea, Cough GI: denies: Abdominal Pain PD PAST MEDICAL HISTORY - Past Medical History Cardiovascular: Peripheral Vascular Disease, Murmur Respiratory: COPD, Pneumonia, Shortness of breath, Sleep apnea Neuro: Headaches, Migraines, Peripheral neuropathy, Motion sickness Endocrine/Autoimmune: None GI: GERD, Ulcers, Hiatal hernia, Hemorrhoids SUPERVISOR STRIPPING: Ovarian cysts : Incontinence, Nocturia, Frequency, Kidney stones HEENT: Chronic vision loss, Chronic sinusitis, Chronic hearing loss Psych: Depression, Anxiety, Bipolar disorder, Schizophrenia, Panic attacks, Post traumatic stress disorder, Other Musculoskeletal: Osteoarthritis, Fatigue, Chronic back pain Derm: None - Past Surgical History Past Surgical History: Yes General: Colonoscopy /SUPERVISOR STRIPPING: Tubal ligation - Present Medications Home Medications: Ambulatory Orders Medication Instructions Recorded Confirmed Hydrocodone/Acetaminophen 1 tab PO Q6H PRN 04/19/19 10/12/19 [Hydrocodone-Acetamin 7.5-325] Loratadine [Allergy] 10 mg PO DAILY 04/19/19 10/12/19 Meloxicam 7.5 mg PO QPM PRN 04/19/19 10/12/19 Mometasone/Formoterol [Dulera 100 2 inh PO BID 04/19/19 10/12/19 Mcg-5 Mcg Inhaler] Prazosin HCl 1 mg PO DAILY 04/19/19 10/12/19 Quetiapine Fumarate [Seroquel] 400 mg PO QPM 04/19/19 10/12/19 Tizanidine HCl 4 mg PO TID PRN 04/19/19 10/12/19 Albuterol 1 inh INH Q4HR PRN 04/21/19 10/12/19 Tiotropium [place] [Spiriva] 1 inh PO DAILY 04/21/19 10/12/19 Albuterol Sulf [Ventolin Hfa 2 puffs INH Q4HR PRN 07/25/19 10/12/19 Inhaler] Diclofenac Sodium [Diclo Gel] 1 each TP PRN PRN 07/25/19 10/12/19 Lidocaine 5 gm TP PRN PRN 07/25/19 10/12/19 predniSONE [Deltasone] 10 mg PO DAILY 07/25/19 10/12/19 Docusate Sodium 100 mg PO BID 10/05/19 10/12/19 - Allergies Allergies/Adverse Reactions: Allergies Allergy/AdvReac Type Severity Reaction Status Date / Time Penicillins Allergy Anaphylaxis Verified 10/16/19 11:51 - Social History Does the pt smoke?: Yes Smoking Status: Current every day smoker Does the pt drink ETOH?: Yes Does the pt have substance abuse?: No - Immunizations Immunizations are current?: Yes - POLST Patient has POLST: No POLST Status: DNR PD ED PE NORMAL - Vitals Vital signs reviewed: Yes - General General: Alert and oriented X 3, No acute distress - HEENT HEENT: Other (Edema especially of the eyelids, nothing concerning in the monique pharynx.) - Cardiac Cardiac: RRR, No murmur - Respiratory Respiratory: No respiratory distress, Other (Tight and wheezy throughout, she says this is her baseline) - Abdomen Abdomen: Non tender - Extremities Extremities: No edema, No calf tenderness / cord - Neuro Neuro: Alert and oriented X 3, Normal speech Results - Vitals Vitals: Vital Signs - 24 hr 10/16/19 11:39 Temperature 37.0 C Heart Rate 99 Respiratory 24 Rate Blood Pressure 149/99 H O2 Saturation 91 L Oxygen O2 Source Nasal cannula Oxygen Flow Rate 3 - EKG (time done) 1202 Rate: Rate (enter#) (82) Rhythm: NSR (w pac) [place]: Normal Intervals: Normal [place] QRS: Normal Ischemia: Normal ST segments Computer interpretation: Agree with computer PD MEDICAL DECISION MAKING - ED course ED course: Facial edema, probably just from being in Trendelenburg for several hours during the surgery, does not appear to be allergic. She is not on an JOYCE inhibitor per her. No oral pharyngeal edema. Will check renal function. She did not want to wait for labs to be done in the emergency department and is discharged while they were pending, she understands there is a possibility of necessity of returning I will call her at [phone] for significant abnormalities. Departure - Departure Disposition: 01 Home, Self Care Clinical Impression: Edema of face Condition: Good Record reviewed to determine appropriate education?: Yes Comments: I will call you if there are significant lab abnormalities. Followup with your surgeon as scheduled. Return if worse.
[2019-10-16 13:03] LABS: BASOPHILS # (AUTO) 0.1 10^3/uL (0.0-0.1); BASOPHILS % (AUTO) 0.4 %; EOSINOPHILS # (AUTO) 0.1 10^3/uL (0.0-0.7); EOSINOPHILS % (AUTO) 0.7 %; HGB - HEMOGLOBIN 14.1 g/dL (12.0-16.0); LYMPHOCYTES # (AUTO) 1.2 10^3/uL (1.5-3.5); LYMPHOCYTES % (AUTO) 9.4 %; MEAN CORPUSCULAR HEMOGLOBIN 32.5 pg (27.0-31.0); MEAN CORPUSCULAR HGB CONC 33.3 g/dL (32.0-36.0); MEAN CORPUSCULAR VOLUME 97.5 fL (81.0-99.0); MEAN PLATELET VOLUME 9.6 fL (7.9-10.8); MONOCYTES # (AUTO) 0.7 10^3/uL (0.0-1.0); MONOCYTES % (AUTO) 5.9 %; NEUTROPHILS # (AUTO) 10.3 10^3/uL (1.5-6.6); NEUTROPHILS % (AUTO) 82.8 %; PLT - PLATELET COUNT 161 10^3/uL (130-450); RED BLOOD COUNT 4.34 10^6/uL (4.20-5.40); WHITE BLOOD COUNT 12.4 x10^3/uL (4.8-10.8)
[2019-10-16 13:11] VITALS: BP 136/79
[2019-10-16 13:18] LABS: ALBUMIN 3.7 g/dL (3.2-5.5); ALBUMIN/GLOBULIN RATIO 1.2 (1.0-2.2); BILIRUBIN,TOTAL 0.5 mg/dL (0.2-1.0); CALCIUM 9.1 mg/dL (8.5-10.3); CREATININE 0.8 mg/dL (0.4-1.0); TOTAL PROTEIN 6.8 g/dL (6.7-8.2)
== END 2019-10-16 13:10 | disposition home or self-care (01) ==
LOC: ED 11:21
DX: H02.849 Edema of unspecified eye, unspecified eyelid (principal); Z90.710 Acquired absence of both cervix and uterus; I73.9 Peripheral vascular disease, unspecified; J44.9 Chronic obstructive pulmonary disease, unspecified; F17.200 Nicotine dependence, unspecified, uncomplicated
CPT/HCPCS: 36415; 80053; 83690; 84484; 85025; 93005; 99281; 99284

== ENCOUNTER 2021-05-10 19:10 | Emergency (ER) | payer MEDICAID ==
[2021-05-10 19:19] VITALS: BP 134/68
--- NOTE | 2021-05-10 20:14 | XRAY Report ---
PROCEDURE: Chest 1 View X-Ray INDICATIONS: soa TECHNIQUE: One view of the chest was acquired. COMPARISON: 09/30/2019 FINDINGS: Surgical changes and devices: None. Lungs and pleura: Small left pleural effusion is seen. Left basilar atelectasis is also noted. No pne umothorax. Right lung is clear. Mediastinum: Mediastinal contours appear normal. Heart size is normal. Bones and chest wall: No suspicious bony lesions. Overlying soft tissues appear unremarkable. IMPRESSION: Small left pleural effusion and left basilar atelectasis. No pneumothorax. Right lung is clear. Reviewed by: John Sarmiento MD on 05/10/2021 8:13 PM PDT Approved by: John Sarmiento MD on 05/10/2021 8:13 PM PDT Station ID: [id number]
[2021-05-10 21:01] LABS: BASOPHILS # (AUTO) 0.1 10^3/uL (0.0-0.1); BASOPHILS % (AUTO) 0.5 %; EOSINOPHILS # (AUTO) 0.2 10^3/uL (0.0-0.7); EOSINOPHILS % (AUTO) 1.8 %; HCT - HEMATOCRIT 48.4 % (37.0-47.0); HGB - HEMOGLOBIN 16.1 g/dL (12.0-16.0); LYMPHOCYTES # (AUTO) 1.9 10^3/uL (1.5-3.5); LYMPHOCYTES % (AUTO) 19.5 %; MEAN CORPUSCULAR HEMOGLOBIN 31.3 pg (27.0-31.0); MEAN CORPUSCULAR HGB CONC 33.3 g/dL (32.0-36.0); MEAN CORPUSCULAR VOLUME 94.2 fL (81.0-99.0); MEAN PLATELET VOLUME 8.9 fL (7.9-10.8); MONOCYTES # (AUTO) 0.7 10^3/uL (0.0-1.0); MONOCYTES % (AUTO) 7.2 %; NEUTROPHILS # (AUTO) 6.8 10^3/uL (1.5-6.6); NEUTROPHILS % (AUTO) 70.5 %; PLT - PLATELET COUNT 154 10^3/uL (130-450); RED BLOOD COUNT 5.14 10^6/uL (4.20-5.40); RED CELL DISTRIBUTION WIDTH 14.5 % (12.0-15.0); WHITE BLOOD COUNT 9.6 x10^3/uL (4.8-10.8)
[2021-05-10] MEDS: IPRATROPIUM/ALBUTEROL 3 ML NEB INH STA (21:02)
[2021-05-10] MEDS: methylPREDNISolone SUCCINATE 125 MG/2 ML VIAL IVP STA (21:07)
[2021-05-10 21:18] LABS: ALBUMIN 4.1 g/dL (3.2-5.5); ALBUMIN/GLOBULIN RATIO 1.4 (1.0-2.2); BILIRUBIN,TOTAL 1.6 mg/dL (0.2-1.0); CALCIUM 8.8 mg/dL (8.5-10.3); CREATININE 0.6 mg/dL (0.4-1.0); POTASSIUM 3.1 mmol/L (3.5-5.0)
--- NOTE | 2021-05-10 22:11 | ED Physician Documentation ---
PD HPI DYSPNEA - Stated complaint Stated Complaint: SOA,RIB PX,NAUSEA - Chief complaint Chief Complaint: Resp - History obtained from History obtained from: Patient - Additional information Additional information: Patient is a 45-year-old with COPD, on home oxygen presenting for evaluation of shortness of breath which is worsened for the last 3 days. She also reports a productive cough for 3 days and right-sided chest pressure when she coughs.She denies fever.Her cough has been productive of yellow to clear sputum. She is chronically on a low-dose of steroids. Additionally she is on Zithromax every other day as a maintenance.She denies chest pain that radiates elsewhere. She denies abdominal pain, vomiting, diarrhea, leg pain or swelling.She does still smoke cigarettes. Review of Systems Constitutional: denies: Fever Nose: denies: Congestion Cardiac: reports: Chest pain / pressure Respiratory: reports: Dyspnea, Cough GI: denies: Abdominal Pain : denies: Dysuria Skin: denies: Rash Musculoskeletal: denies: Back pain, Extremity pain Neurologic: denies: Headache PD PAST MEDICAL HISTORY - Past Medical History Past Medical History: Yes Cardiovascular: Peripheral Vascular Disease, Murmur Respiratory: COPD, Pneumonia, Shortness of breath, Sleep apnea Neuro: Headaches, Migraines, Peripheral neuropathy, Motion sickness Endocrine/Autoimmune: None GI: GERD, Ulcers, Hiatal hernia, Hemorrhoids 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: Ovarian cysts : Incontinence, Nocturia, Frequency, Kidney stones HEENT: Chronic vision loss, Chronic sinusitis, Chronic hearing loss Psych: Depression, Anxiety, Bipolar disorder, Schizophrenia, Panic attacks, Post traumatic stress disorder, Other Musculoskeletal: Osteoarthritis, Fatigue, Chronic back pain Derm: None - Past Surgical History Past Surgical History: Yes General: Colonoscopy /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: Tubal ligation - Present Medications Home Medications: Ambulatory Orders Medication Instructions Recorded Confirmed Hydrocodone/Acetaminophen 1 tab PO Q6H PRN 04/19/19 10/12/19 [Hydrocodone-Acetamin 7.5-325] Loratadine [Allergy] 10 mg PO DAILY 04/19/19 10/12/19 Meloxicam 7.5 mg PO QPM PRN 04/19/19 10/12/19 Mometasone/Formoterol [Dulera 100 2 inh PO BID 04/19/19 10/12/19 Mcg-5 Mcg Inhaler] Prazosin HCl 1 mg PO DAILY 04/19/19 10/12/19 Quetiapine Fumarate [Seroquel] 400 mg PO QPM 04/19/19 10/12/19 Tizanidine HCl 4 mg PO TID PRN 04/19/19 10/12/19 Albuterol 1 inh INH Q4HR PRN 04/21/19 10/12/19 Tiotropium [place] [Spiriva] 1 inh PO DAILY 04/21/19 10/12/19 Albuterol Sulf [Ventolin Hfa 2 puffs INH Q4HR PRN 07/25/19 10/12/19 Inhaler] Diclofenac Sodium [Diclo Gel] 1 each TP PRN PRN 07/25/19 10/12/19 Lidocaine 5 gm TP PRN PRN 07/25/19 10/12/19 predniSONE [Deltasone] 10 mg PO DAILY 07/25/19 10/12/19 Docusate Sodium 100 mg PO BID 10/05/19 10/12/19 cefUROXime axetiL [Ceftin] 500 mg PO Q12H #10 tablet 05/10/21 predniSONE [Deltasone] 60 mg PO DAILY 5 Days #15 tablet 05/10/21 - Allergies Allergies/Adverse Reactions: Allergies Allergy/AdvReac Type Severity Reaction Status Date / Time Penicillins Allergy Anaphylaxis Verified 05/10/21 19:20 - Social History Does the pt smoke?: Yes Smoking Status: Current every day smoker Does the pt drink ETOH?: Yes Does the pt have substance abuse?: No - Immunizations Immunizations are current?: Yes - POLST Patient has POLST: No POLST Status: DNR PD ED PE NORMAL - General General: Alert and oriented X 3, No acute distress, Well developed/nourished - HEENT HEENT: Atraumatic - Neck Neck: Supple, no meningeal sign - Cardiac Cardiac: RRR, No murmur, Strong equal pulses, Other (No chest wall crepitus, rash.) - Respiratory Respiratory: No respiratory distress, Other (Diffuse wheezing bilaterally) - Abdomen Abdomen: Normal bowel sounds, Soft, Non tender, Non distended - Derm Derm: Warm and dry - Extremities Extremities: No edema - Neuro Neuro: No motor deficit, Normal speech - Psych Psych: Normal mood, Normal affect PD ED PE EXPANDED - Cardiac Cardiac: Chest wall TTP (B/l Anterior lower chest acuña with no crepitus) Results - Vitals Vitals: Vital Signs - 24 hr 05/10/21 05/10/21 05/10/21 19:14 21:00 22:57 Temperature 36.0 C L Heart Rate 78 77 Respiratory 24 18 20 Rate Blood Pressure 134/68 H O2 Saturation 95 94 Oxygen O2 Source Nasal cannula - EKG (time done) 2109 Rate: Rate (enter#) (72) Rhythm: NSR [place]: Normal Ischemia: No: ST elevation c/w ischemia - Labs Labs: Laboratory Tests 05/10/21 05/10/21 05/10/21 20:55 20:55 20:55 WBC 9.6 RBC 5.14 Hgb 16.1 H Hct 48.4 H MCV 94.2 MCH 31.3 H MCHC 33.3 RDW 14.5 Plt Count 154 MPV 8.9 Neut # (Auto) 6.8 H Lymph # (Auto) 1.9 Sully # (Auto) 0.7 Eos # (Auto) 0.2 Baso # (Auto) 0.1 Absolute Nucleated RBC 0.00 Nucleated RBC % 0.0 Sodium 139 Potassium 3.1 L Chloride 96 L Carbon Dioxide 27 Anion Gap 16.0 H BUN 7 Creatinine 0.6 Estimated GFR (MDRD) 107 Glucose 85 Calcium 8.8 Total Bilirubin 1.6 H AST 28 ALT 45 Alkaline Phosphatase 70 Troponin I High Sens 8.1 B-Natriuretic Peptide Total Protein 7.0 Albumin 4.1 Globulin 2.9 Albumin/Globulin Ratio 1.4 05/10/21 20:55 WBC RBC Hgb Hct MCV MCH MCHC RDW Plt Count MPV Neut # (Auto) Lymph # (Auto) [place]ully # (Auto) Eos # (Auto) Baso # (Auto) Absolute Nucleated RBC Nucleated RBC % Sodium Potassium Chloride Carbon Dioxide Anion Gap BUN Creatinine Estimated GFR (MDRD) Glucose Calcium Total Bilirubin AST ALT Alkaline Phosphatase Troponin I High Sens B-Natriuretic Peptide 123 H Total Protein Albumin Globulin Albumin/Globulin Ratio PD MEDICAL DECISION MAKING - ED course ED course: Patient presenting for evaluation of shortness of breath. She is on home oxygen and her saturations appear stable. She is not in respiratory distress. She does have wheezing on exam which improved after nebulized treatment. She does not appear septic. She does not have signs of ACS. Do not think her shortness of breath is related to a PE given her history of COPD and presentation. Her chest x-ray shows a small left pleural effusion. There could be an underlying infiltrate. Given her recent worsening in symptoms, I will treat with prednisone and antibiotic.Patient states she is feeling improved and is comfortable with plan for discharge home. She is aware of strict return precautions. Departure - Departure Disposition: Home, Self Care Clinical Impression: COPD with exacerbation, Pleural effusion, left Condition: Stable Instructions: ED COPD Flare Prescriptions: cefUROXime axetiL [Ceftin] 500 mg PO Q12H #10 tablet predniSONE [Deltasone] 60 mg PO DAILY 5 Days #15 tablet Comments: You were evaluated for shortness of breath and chest pain. I believe your symptoms are related to an exacerbation of your underlying COPD. Please wear your home oxygen as prescribed.You were given steroids and an antibiotic this evening. I have sent prescriptions to the [facility] in [place]. Please co nsider smoking cessation. Please follow-up with your tissue packer. Return to the emergency department if your symptoms are worsening such as trouble breathing, chest pain,Weakness. Discharge Date/Time: 05/10/21 22:59
== END 2021-05-10 22:59 | disposition home or self-care (01) ==
LOC: ED 19:10
DX: J44.1 Chronic obstructive pulmonary disease with (acute) exacerbation (principal); Z99.81 Dependence on supplemental oxygen; J90 Pleural effusion, not elsewhere classified; F17.210 Nicotine dependence, cigarettes, uncomplicated; Z20.822 Contact with and (suspected) exposure to COVID-19
CPT/HCPCS: 36415; 71045; 80053; 83880; 84484; 85025; 87635; 93005; 94640; 96374; 99283; 99285; A9270